=== PATIENT | male | born 1975 | race Caucasian/White ===

== ENCOUNTER 2016-10-25 08:55 | Emergency (ER) | payer OTHER ==
[~2016-10-25] VITALS: Ht 170.2 cm; Wt 105.6 kg
[~2016-10-25 08:55] MED LIST: BND25 PO; EPP3/2 IM; PERM5CRE5 TD; RRNITROTAB SL
[2016-10-25 09:00] VITALS: TEMP 36.8; Ht 170.2 cm; Wt 105.6 kg
[2016-10-25 09:03] VITALS: O2SAT 100
[2016-10-25] MEDS ORDERED: SODIUM CHLORIDE 0.9% 1000ML 1,000 ML IV STA (09:06)
[2016-10-25] MEDS ORDERED: ONDANSETRON INJ 2 MG/ML 2 ML VIAL IV STA (09:06)
[2016-10-25 09:21] LABS: BASO % 0.6 %; BASO ABS # 0.04 K/uL (0-0.2); COMPLETE YES; EOS % 2.1 %; HEMATOCRIT 39.2 % (42-52); IG% 0.1 %; LYMPH % 33.7 %; LYMPH ABS # 2.37 K/uL (1.2-3.4); MEAN CELL VOLUME 89.5 fL (80-100); MEAN CORPUSCULAR HEMOGLOBIN 32.6 pg (25-34); MEAN CORPUSCULAR HGB CONC 36.5 g/dl (32-36); MEAN PLATELET VOLUME 9.7 fL (7.4-10.4); MONO % 5.8 %; NEUT % 57.7 %; PLATELET COUNT 199 K/uL (130-400); RED BLOOD COUNT 4.38 M/uL (4.7-6.1); WHITE BLOOD COUNT 7.03 K/uL (4.8-10.8)
[2016-10-25] MEDS: MoRPHine SULFATE 4 MG/ML 1 ML CARP\\VIAL IV PRN ×3 (09:21→10:57)
--- NOTE | 2016-10-25 09:25 | EMERGENCY ROOM VISIT NOTE ---
History Report prepared by Franck: Shae Cardenas Under the Supervision of: Dr. Robert Carmona D.O. First contact with patient: 09:01 Chief Complaint: CHEST PAIN Stated Complaint: CHEST PAIN Nursing Triage Summary: pt c/o left chest pain started at 0800 this am feels sob History of Present Illness The patient is a 41 year old male who presents to the Emergency Room with complaints of chest pain. The patient started having chest pain at approximately 8 a.m. this morning. 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 He also complains of nausea as well as shortness of breath. He states the pain is over the left side of his chest and goes to his mid back. He states it radiates to his lower back. He has not had pain similar to this in the past. He states the pain is moderate to severe this time. He has taken no medication for pain. He denies any swelling in the legs or abdominal pain he denies having any vomiting. He has not had any strenuous activity recently. He doesn't a family history of heart disease with his grandfather. The patient states the pain is somewhat worsened with deep breath. Source of History: patient Onset: 8 am this morning Position: chest (left) Symptom Intensity: Moderate to severe Modifying Factors (Worsening): breathing (deep) Associated Symptoms: + SOB, + nausea, No abdominal pain, No vomiting Review of Systems See HPI for pertinent positives & negatives. A total of 10 systems reviewed and were otherwise negative. Past Medical & Surgical Medical Problems: (1) History of calculus of kidney (2) Kidney stone (3) s/p hernia repair (4) Ulcerative colitis (5) Urticaria Family History Patient reports no known family medical history. Social History Smoking Status: Current Every Day Smoker Alcohol Use: none Drug Use: none Marital Status: Housing Status: lives with family Occupation Status: employed Current/Historical Medications Scheduled Epinephrine (Epipen), 0.3 MG IM UD Omeprazole (Prilosec), 20 MG PO DAILY Scheduled PRN Diphenhydramine Hcl (Benadryl), 25 MG PO Q4H PRN for ALLERGIC REACTION Nitroglycerin (Nitrostat), 0.4 MG SL DIRECTED PRN for Chest Pain Oxycodone Immediate Rel Tab (Roxicodone Ir), 1-2 TAB PO Q4H PRN for Severe Pain Allergies Coded Allergies: Amoxicillin (Verified Allergy, Unknown, ANAPHYLAXIS, 10/25/16) Penicillin G (Verified Allergy, Unknown, ANAPHYLAXIS, 10/25/16) Pseudoephedrine (Verified Allergy, Unknown, HIVES, 10/25/16) Sulfa Drugs (Verified Allergy, Unknown, RASH, ITCH, 10/25/16) Physical Exam Vital Signs Date Time Temp Pulse Resp B/P Pulse Ox O2 Delivery O2 Flow Rate FiO2 10/25/16 13:26 47 18 96/65 97 Room Air 10/25/16 13:00 47 18 111/72 95 Room Air 10/25/16 12:48 48 10/25/16 11:32 52 18 104/60 96 Room Air 10/25/16 10:57 49 123/57 96 Room Air 10/25/16 10:06 48 17 100/61 96 Room Air 10/25/16 09:28 51 13 140/82 92 Nasal Cannula 2.0 10/25/16 09:25 65 20 138/100 10/25/16 09:07 53 10/25/16 09:03 100 Room Air 10/25/16 09:00 36.8 52 24 143/99 100 Room Air 2.0 Nasal Cannula 10/25/16 09:00 Nasal Cannula 2.0 Physical Exam GENERAL: Patient is awake and alert. He appears very anxious and uncomfortable. EYES: The conjunctivae are clear. The pupils are round and reactive. EARS, NOSE, MOUTH AND THROAT: The nose is without any evidence of any deformity. Mucous membranes are moist tongue is midline NECK: The neck is nontender and supple. RESPIRATORY: Normal respiratory effort is noted there is no evidence of wheezing rhonchi or rales CARDIOVASCULAR: Regular rate and rhythm noted there no murmurs rubs or gallops normal S1 normal S2 GASTROINTESTINAL: The abdomen is soft. Bowel sounds are present in all quadrants. Abdomen is nontender MUSCULOSKELETAL/EXTREMITIES: There is no evidence of gross deformity full range of motion is noted in the hips and shoulders SKIN: There is no obvious evidence of any rash. There are no petechiae, pallor or cyanosis noted. NEUROLOGIC: Patient is awake alert and oriented x3. Medical Decision & Procedures ER Provider Diagnostic Interpretation: X ray results and stated below per my interpretation and radiology interpretation. CT results per my review and radiologist interpretation: CT ANGIOGRAM OF THE CHEST COMBO CLINICAL HISTORY: Atypical chest pain. COMPARISON STUDY: Chest x-ray dated 10/25/2016. TECHNIQUE: Before and following the IV administration of 120 cc of Optiray 320, CT angiogram of the chest was performed from the thoracic inlet to the upper abdomen. Images are reviewed in the axial, sagittal, and coronal planes. 3-D MIPS images are created and assessed. IV contrast was administered without complication. CT DOSE: 1388.03 mGy.cm FINDINGS: Thyroid: Imaged portions of the thyroid gland are normal in size and attenuation. A calcified nodule in the right lobe measures up to 1.3 cm. Thoracic aorta: No intramural hematoma is seen on the unenhanced series. The thoracic aorta is normal in caliber and demonstrates standard 3-vessel arch anatomy. No dissection is seen. The arch vessels are widely patent. Pulmonary vasculature: The pulmonary trunk is normal in caliber. There are no central filling defects identified to suggest pulmonary embolus. Note that this examination was not protocoled for assessment of the pulmonary arteries. Heart: The heart is enlarged and without pericardial effusion. Lungs and pleural spaces: The lungs and pleural spaces are clear noting dependent atelectasis. There is a 5 mm nondependent nodular density identified in the anterior tracheal wall on image #68. The trachea and central airways are otherwise clear. Mediastinum: There is no mediastinal lymphadenopathy. Danna: Clear. Axillae: There is no axillary lymphadenopathy. Upper abdomen: There is a small hiatal hernia. Partially visualized upper abdominal viscera is otherwise within normal limits. Skeletal structures: No lytic or blastic bony lesions are seen. IMPRESSION: 1. There is no aneurysm or dissection seen involving the thoracic aorta. 2. Cardiomegaly. 3. The lungs are clear. Electronically signed by: Lobo Maxwell M.D. 10/25/2016 10:14 AM Dictated Date/Time: 10/25/2016 10:09 AM CHEST ONE VIEW PORTABLE CLINICAL HISTORY: CHEST PAIN dyspnea COMPARISON STUDY: 01/09/2015 FINDINGS: The bones soft tissues and hemidiaphragms are normal. The cardiomediastinal silhouette is normal. The lungs are clear. The pulmonary vasculature is normal. IMPRESSION: Negative chest. Electronically signed by: Jae Lua M.D. 10/25/2016 9:50 AM Dictated Date/Time: 10/25/2016 9:50 AM Laboratory Results 10/25/16 09:05 Red Blood Count 4.38, Mean Corpuscular Volume 89.5, Mean Corpuscular Hemoglobin 32.6, Mean Corpuscular Hemoglobin Concent 36.5, Mean Platelet Volume 9.7, Neutrophils (%) (Auto) 57.7, Lymphocytes (%) (Auto) 33.7, Monocytes (%) (Auto) 5.8, Eosinophils (%) (Auto) 2.1, Basophils (%) (Auto) 0.6, Neutrophils # (Auto) 4.05, Lymphocytes # (Auto) 2.37, Monocytes # (Auto) 0.41, Eosinophils # (Auto) 0.15, Basophils # (Auto) 0.04 10/25/16 09:05 Test 10/25/16 09:05 10/25/16 09:11 10/25/16 12:09 White Blood Count 7.03 K/uL (4.8-10.8) Red Blood Count 4.38 M/uL (4.7-6.1) Hemoglobin 14.3 g/dL (14.0-18.0) Hematocrit 39.2 % (42-52) Mean Corpuscular Volume 89.5 fL (80-100) Mean Corpuscular Hemoglobin 32.6 pg (25-34) Mean Corpuscular Hemoglobin Concent 36.5 g/dl (32-36) Platelet Count 199 K/uL (130-400) Mean Platelet Volume 9.7 fL (7.4-10.4) Neutrophils (%) (Auto) 57.7 % Lymphocytes (%) (Auto) 33.7 % Monocytes (%) (Auto) 5.8 % Eosinophils (%) (Auto) 2.1 % Basophils (%) (Auto) 0.6 % Neutrophils # (Auto) 4.05 K/uL (1.4-6.5) Lymphocytes # (Auto) 2.37 K/uL (1.2-3.4) Monocytes # (Auto) 0.41 K/uL (0.11-0.59) Eosinophils # (Auto) 0.15 K/uL (0-0.5) Basophils # (Auto) 0.04 K/uL (0-0.2) RDW Standard Deviation 39.7 fL (36.4-46.3) RDW Coefficient of Variation 12.2 % (11.5-14.5) Immature Granulocyte % (Auto) 0.1 % Immature Granulocyte # (Auto) 0.01 K/uL (0.00-0.02) Prothrombin Time 10.8 SECONDS (9.0-12.0) Prothromb Time International Ratio 1.0 (0.9-1.1) Activated Partial Thromboplast Time 25.2 SECONDS (21.0-31.0) Partial Thromboplastin Ratio 1.0 Anion Gap 10.0 mmol/L (3-11) Est Creatinine Clear Calc Drug Dose 123.5 ml/min Estimated GFR () 119.4 Estimated GFR (Non- 103.0 BUN/Creatinine Ratio 14.5 (10-20) Calcium Level 8.9 mg/dl (8.5-10.1) Total Bilirubin 0.6 mg/dl (0.2-1) Direct Bilirubin 0.1 mg/dl (0-0.2) Aspartate Amino Transf (AST/SGOT) 15 U/L (15-37) Alanine Aminotransferase (ALT/SGPT) 24 U/L (12-78) Alkaline Phosphatase 68 U/L (45-117) Total Creatine Kinase 171 U/L (39-308) Creatine Kinase MB 2.0 ng/ml (0.5-3.6) Creatine Kinase MB Ratio 1.2 (0-3.0) Total Protein 7.2 gm/dl (6.4-8.2) Albumin 4.2 gm/dl (3.4-5.0) Lipase 147 U/L (73-393) Bedside D-Dimer 183 ng/mlFEU (0-450) Bedside Troponin I 0.000 ng/ml (0-0.045) Laboratory results per my review. Medications Administered Medications (Trade) Dose Ordered Sig/Rikki Route Start Time Stop Time Status Last Admin Dose Admin Morphine Sulfate (MoRPHine SULFATE INJ) 4 mg Q15M PRN IV 10/25/16 09:15 10/25/16 14:07 DC 10/25/16 10:57 4 MG Ondansetron HCl 4 mg 4 mg NOW STAT IV 10/25/16 09:06 10/25/16 09:08 DC 10/25/16 09:17 4 MG Sodium Chloride (Nss 1000ml) 1,000 ml @ 125 mls/hr Q8H STAT IV 10/25/16 09:06 10/25/16 14:07 DC 10/25/16 09:21 125 MLS/HR Al Hydroxide/Mg Hydroxide (Maalox Susp) 30 ml NOW STAT PO 10/25/16 12:32 10/25/16 12:34 DC 10/25/16 12:55 30 ML Pantoprazole Sodium (Protonix Tab) 40 mg NOW STAT PO 10/25/16 12:32 10/25/16 12:34 DC 10/25/16 12:55 40 MG ECG Indication: chest pain Rate (beats per minute): 53 Rhythm: sinus bradycardia Findings: no acute ischemic change, no ectopy Change: no significant change (01/11/2015) ED Course 0901: The patient was evaluated in room A09B. A complete history and physical examination were performed. 0906: Sodium Chloride 1000 ml @ 125 mls/hr IV, Zofran Inj 4 mg IV 0915: Morphine Sulfate 4 mg IV 1232: Protonix Tab 40 mg PO, Maalox Susp 30 ml PO 1248: The patient does not feel comfortable going home. The patient will be evaluated for further management and care. 1317: I discussed the patient's [facility] 1335: Upon reevaluation, the patient is resting comfortably and is pain free. I discussed the results and treatment plan with him. He verbalized agreement of the treatment plan. He was discharged home. Medical Decision Differential diagnosis: Etiologies such as cardiac ischemia, aortic dissection, pulmonary embolism, pneumonia, pneumothorax, musculoskeletal, infections, pericarditis, myocarditis , esophageal rupture, gastrointestinal, as well as others were entertained. Nursing notes reviewed. The patient is a 41-year-old male who presented to the emergency department for an evaluation chest pain. The patient had anterior chest pain which went to his back. The patient's chest x-ray I felt had a widened mediastinum. This reason a dissection study was obtained to be sure this was not an dissection. The patient was not found have any signs of pulmonary embolus or dissection. EKG did not show any acute change from previous. Troponin did not show an elevation. At this time I do not feel this represents a cardiac cause for his chest pain. I discussed the patient's laboratory and radiographic studies with him. He was treated with Maalox as well as Protonix in the emergency department. Initially the patient wished to be evaluated by the hospitalist for possible inpatient management. I discussed the limitations of the emergency department workup for chest pain with the patient. On subsequent reevaluation he was feeling much better and requested to be discharged home. He was encouraged to rest and avoid any strenuous activity. He was encouraged to follow -up with his primary care physician for reevaluation this is possible. He was also encouraged to continue using Maalox or Mylanta for symptomatically relief return to the emergency department immediately if symptoms change worsen or the need arises. Consults Time Called: 1248 Consulting Physician: [facility]. Hicks, [facility] Returned Call: [phone] I discussed the patient's case with Dr. Hicks[facility]. Impression Primary Impression: Anterior chest wall pain Additional Impression: Back pain Scribe Attestation The scribe's documentation has been prepared under my direction and personally reviewed by me in its entirety. I confirm that the note above accurately reflects all work, treatment, procedures, and medical decision making performed by me. Departure Information Dispostion Home / Self-Care Prescriptions Omeprazole (PRILOSEC) 20 Mg Cap 20 MG PO DAILY, #30 CAP Prov: Robert Carmona, DO 10/25/16 Oxycodone Immediate Rel Tab (ROXICODONE IR) 5 Mg Tab 1-2 TAB PO Q4H Y for Severe Pain, #24 TAB Prov: Robert Carmona, DO 10/25/16 Referrals Keya Felder C.R.N.P (PCP) Forms HOME CARE DOCUMENTATION FORM, IMPORTANT VISIT INFORMATION Patient Instructions ED Chest Pain Atypical Unkn Cause, My [facility] Additional Instructions Rest and avoid any strenuous activity. Call your family to schedule a follow -up appointment. Continue all medications as prescribed. Problem Qualifiers
[2016-10-25 09:35] LABS: PROTHROMBIN TIME (PATIENT) 10.8 SECONDS (9.0-12.0)
[2016-10-25 09:36] LABS: CALCIUM 8.9 mg/dl (8.5-10.1); POTASSIUM 3.7 mmol/L (3.5-5.1)
--- NOTE | 2016-10-25 09:52 | DIAGNOSTIC IMAGING REPORT ---
CHEST ONE VIEW PORTABLE CLINICAL HISTORY: CHEST PAIN dyspnea COMPARISON STUDY: 01/09/2015 FINDINGS: The bones soft tissues and hemidiaphragms are normal. The cardiomediastinal silhouette is normal. The lungs are clear. The pulmonary vasculature is normal. IMPRESSION: Negative chest. Electronically signed by: Jae Lua M.D. 10/25/2016 9:50 AM Dictated Date/Time: 10/25/2016 9:50 AM
[2016-10-25 09:56] LABS: BUN/CREATININE RATIO 14.5 (10-20); CKMB/CK RATIO 1.2 (0-3.0); CREATININE 0.93 mg/dl (0.60-1.40)
[2016-10-25] MEDS ORDERED: OPTIRAY 320 IV PRN (10:00)
--- NOTE | 2016-10-25 10:15 | DIAGNOSTIC IMAGING REPORT ---
CT ANGIOGRAM OF THE CHEST COMBO CLINICAL HISTORY: Atypical chest pain. COMPARISON STUDY: Chest x-ray dated 10/25/2016. TECHNIQUE: Before and following the IV administration of 120 cc of Optiray 320, CT angiogram of the chest was performed from the thoracic inlet to the upper abdomen. Images are reviewed in the axial, sagittal, and coronal planes. 3-D MIPS images are created and assessed. IV contrast was administered without complication. CT DOSE: 1388.03 mGy.cm FINDINGS: Thyroid: Imaged portions of the thyroid gland are normal in size and attenuation. A calcified nodule in the right lobe measures up to 1.3 cm. Thoracic aorta: No intramural hematoma is seen on the unenhanced series. The thoracic aorta is normal in caliber and demonstrates standard 3-vessel arch anatomy. No dissection is seen. The arch vessels are widely patent. Pulmonary vasculature: The pulmonary trunk is normal in caliber. There are no central filling defects identified to suggest pulmonary embolus. Note that this examination was not protocoled for assessment of the pulmonary arteries. Heart: The heart is enlarged and without pericardial effusion. Lungs and pleural spaces: The lungs and pleural spaces are clear noting dependent atelectasis. There is a 5 mm nondependent nodular density identified in the anterior tracheal wall on image #68. The trachea and central airways are otherwise clear. Mediastinum: There is no mediastinal lymphadenopathy. Danna: Clear. Axillae: There is no axillary lymphadenopathy. Upper abdomen: There is a small hiatal hernia. Partially visualized upper abdominal viscera is otherwise within normal limits. Skeletal structures: No lytic or blastic bony lesions are seen. IMPRESSION: 1. There is no aneurysm or dissection seen involving the thoracic aorta. 2. Cardiomegaly. 3. The lungs are clear. Electronically signed by: Lobo Maxwell M.D. 10/25/2016 10:14 AM Dictated Date/Time: 10/25/2016 10:09 AM
[2016-10-25] MEDS ORDERED: ALUMINUM/MAGNESIUM SUSP 30 ML UDC PO STA (12:32)
[2016-10-25] MEDS ORDERED: PANTOprazole SOD 40 MG TAB PO STA (12:32)
[2016-10-25] MEDS ORDERED: OXYC1TAB3 PO (12:44)
[2016-10-25] MEDS ORDERED: OMEP20CA9 PO (12:44)
[2016-10-25 13:26] VITALS: BP 96/65; PULSE 47; O2SAT 97
== END 2016-10-25 13:45 | disposition home or self-care (01) ==
LOC: C.EDB 08:56 → C.EDA 13:45
DX: R07.89 Other chest pain (principal); M54.9 Dorsalgia, unspecified; Z87.442 Personal history of urinary calculi; K51.90 Ulcerative colitis, unspecified, without complications; F17.210 Nicotine dependence, cigarettes, uncomplicated; Z79.899 Other long term (current) drug therapy

== ENCOUNTER → 2017-01-19 | Outpatient (CLI) | payer OTHER ==
[~2017-01-19] VITALS: Ht 172.7 cm; Wt 102.0 kg
[~2017-01-19] MED LIST changes: -BND25 PO; +DIPH25CA5 PO; +ONDA4TAB10 SL; +OXYC-643 PO; +OXYC1TAB3 PO; -PERM5CRE5 TD
[2017-01-19 16:17] VITALS: BP 113/72; PULSE 61; Ht 172.7 cm; Wt 102.0 kg
== END | disposition home or self-care (01) ==
LOC: C.NEUR 15:37
PROVIDERS: ATTEND Internal Medicine Pulmonary Disease
DX: G47.30 Sleep apnea, unspecified (principal)

== ENCOUNTER 2017-05-14 17:36 | Emergency (ER) | payer OTHER ==
[~2017-05-14] VITALS: Ht 170.2 cm; Wt 106.3 kg
[~2017-05-14 17:36] MED LIST changes: +BND25 PO; -DIPH25CA5 PO; -ONDA4TAB10 SL; -OXYC-643 PO; -OXYC1TAB3 PO
[2017-05-14 17:50] VITALS: TEMP 36.7; Ht 170.2 cm; Wt 106.3 kg
[2017-05-14] MEDS ORDERED: OXYC-643 PO (18:25)
[2017-05-14] MEDS ORDERED: ONDANSETRON INJ 2 MG/ML 2 ML VIAL IV STA (18:45)
[2017-05-14] MEDS ORDERED: SODIUM CHLORIDE 0.9% 1000ML 1,000 ML IV STA (18:45)
[2017-05-14 19:01] LABS: URINE APPEARANCE CLEAR (CLEAR); URINE BILIRUBIN NEG (NEG); URINE COLOR YELLOW; URINE NITRITE NEG (NEG); URINE SPECIFIC GRAVITY 1.019 (1.000-1.030); UROBILINOGEN NEG (NEG); ZZUR CULT IF INDIC CLEAN CATCH NO
[2017-05-14 19:11] LABS: MANUAL MICROSCOPIC REQUIRED? NO; REVIEW REQ? NO
[2017-05-14] MEDS ORDERED: KETOROLAC TROMETHAMINE 30 MG/ML VIAL IV STA (19:55)
[2017-05-14] MEDS ORDERED: ONDA4TAB10 SL (19:56)
--- NOTE | 2017-05-14 19:59 | EMERGENCY ROOM VISIT NOTE ---
ED Visit Note First contact with patient: 18:29 CHIEF COMPLAINT: Abdominal pain, nausea, diarrhea 2 days HISTORY OF PRESENT ILLNESS: This 42-year-old male patient presents to the emergency department's , complaining of abdominal pain, vomiting, diarrhea 2 days. The patient states yesterday morning, he awoke and had one episode of emesis. He does report right lower quadrant abdominal pain as well. The patient states this morning, he awoke and vomited again. He does describe worse right lower quadrant pain. The patient has been eating on occasion, however this has worsened his upset stomach. The patient was seen today at [facility] where he was given morphine and fluids, and sent home with a prescription for Percocet. The patient states he did have lab work and a CT scan of his abdomen performed at [facility]. The patient states he went home, however continued to experience nausea and abdominal pain. The patient did take a Percocet, and states approximately 3 hours later he did develop hives on his chest. The patient states over the past week he has intermittently been experiencing hives on his chest. The patient reports the pain as intermittently sharp and 8/10. The pain did not improve with Percocet. The patient admits to chills, feeling feverish, diarrhea, fatigue. The patient denies chest pain, shortness of breath, fever, constipation, or other symptoms. REVIEW OF SYSTEMS: A 10 system review of systems was performed with positives and pertinent negatives listed in the history of present illness. All other systems were reviewed and are negative. ALLERGIES: Penicillin, amoxicillin, Sudafed, sulfa MEDICATIONS: Percocet, EpiPen, Benadryl, nitroglycerin PMH: Hives SOCIAL HISTORY: The patient lives locally with family. He denies drug, alcohol use. The patient admits to smoking "a few cigarettes" daily. PHYSICAL EXAM: VITALS: Vitals are noted on the nurse's note and reviewed by myself. Vital signs stable. GENERAL: This is a 42-year-old male, in no acute distress, nondiaphoretic, well- developed well-nourished. SKIN: The skin was without rashes, erythema, edema, or bruising. There is no tenting of the skin. Capillary reflex less than 2 seconds. HEAD: Normocephalic atraumatic. EARS: External auditory canals clear, tympanic membranes pearly anand without erythema or effusion bilaterally. EYES: Pupils equal round and reactive to light and accommodation. Conjunctivae without injection, sclerae without icterus. Extraocular movements intact. NOSE: Patent, turbinates without inflammation or discharge. No sinus tenderness. MOUTH: Mucous membranes moist. Tonsils are not enlarged. Pharynx without erythema or exudate. Uvula midline. Airway patent. Tongue does not deviate. NECK: Supple without nuchal rigidity. No lymphadenopathy. No thyromegaly. Cervical spine is nontender. No JVD. HEART: Regular rate and rhythm without murmurs gallops or rubs. LUNGS: Clear to auscultation bilaterally without wheezes, rales or rhonchi. No dullness to percussion. No retractions or accessory muscle use. ABDOMEN: Positive bowel sounds x 4. Normal tympanic percussion. The patient did have right lower quadrant tenderness only and deep palpation. Otherwise, the abdomen was soft, nontender, without masses or organomegaly. Pearce sign negative. No guarding or rebound tenderness. MUSCULOSKELETAL: No muscle atrophy, erythema, or edema noted. Full range of motion without joint tenderness in all extremities. No tenderness to palpation. Normal gait. Strength 5/5 throughout. NEURO: Patient was alert and oriented to person place and time. Normal sensation to light and sharp touch. Deep tendon reflexes 2+ throughout. No focal neurological deficits. EMERGENCY DEPARTMENT COURSE: The patient was seen and evaluated as above. I was able to obtain the patient's records from [facility] with the CT scan results. I did review the records and results. CT scan showed a tiny amount of free fluid in the pelvis, but was otherwise normal. The radiologist did indicate that the appendix was normal. I discussed these labs and radiology results with the patient and his at bedside. The patient was given 1 L of normal saline solution bolus and 4 mg Zofran IV. His symptoms did significantly improve in the emergency department. I discussed possible discharge instructions with the patient and his . I encouraged them to use Zofran as needed for nausea and OTC antidiarrheal medication. I advised him that I did review all the results of the testing from [facility], and there is no further testing that I would recommend having done at this time. I did offer the patient pain medication, and he states he does not want narcotics. I did give the patient 30 mg Toradol the IV. He did note some improvement in his symptoms. The patient and his were in agreement with the discharge plan, and he is feeling better upon discharge. The patient was discharged home in good condition. DIFFERENTIAL DIAGNOSIS: Gastroenteritis, bowel obstruction, acute appendicitis, cholecystitis, pancreatitis, diverticulitis, malignancy, and others DIAGNOSIS: Acute gastroenteritis DISCHARGE INSTRUCTIONS & TREATMENT: You have been treated in the Emergency Department your Abdominal Pain. Laboratory results and imaging studies which were performed at [facility] have ruled out any emergent causes for your abdominal pain which would warrant admission or surgery. You have been prescribed Percocet by [facility] to be used for pain control. This is a narcotic medication. You cannot drive or consume alcohol while on this medicine. This medicine should only be used for pain that cannot be controlled with [id number]-epidbgm pain medicines. You have been prescribed Zofran to be used for any nausea or vomiting. Take as prescribed. You may take OTC antidiarrheal medications as directed on the box. For pain control, you can use the following cnzy-kfo-dzihfwo medicines (if >12 yo): - Regular strength (325mg/tab) Tylenol (acetaminophen) 2 tabs every 4-6 hours as needed. Do not exceed 9 tablets in a 24 hour period. Avoid taking more than 3 grams (3000 mg) of Tylenol per day. This includes any other sources of acetaminophen you may take on a regular basis. - Regular strength (200 mg/tab) Advil (ibuprofen) 1-2 tabs every 4-6 hours as needed. Do not exceed a dose of 2400 mg per day. Drink plenty of water and stay well hydrated. I recommend a clear liquid diet for the next 1-2 days until your abdominal pain, nausea, vomiting have improved. At that time, slowly increase easy to digest foods such as bananas, rice, baked chicken, and fruits and vegetables. Try to avoid any fatty or fried foods for the next week. As with any trip to the Emergency Department, you should follow-up with your Primary Care Provider from today's visit. Return to the emergency department if your symptoms persist despite treatment plan outlined above or if the following symptoms occur: increased fevers, chills , worsening nausea/vomiting, blood in your stool or urine. Problem List Medical Problems: (1) History of calculus of kidney Status: Resolved (2) Kidney stone Status: Resolved (3) s/p hernia repair Status: Resolved (4) Ulcerative colitis Status: Resolved (5) Urticaria Status: Chronic Current/Historical Medications Scheduled Epinephrine (Epipen), 0.3 MG IM UD Ondasetron Odt (Zofran Odt), 4 MG SL Q6H Scheduled PRN Diphenhydramine Hcl (Benadryl), 25 MG PO Q4H PRN for ALLERGIC REACTION Nitroglycerin (Nitrostat), 0.4 MG SL DIRECTED PRN for Chest Pain Oxycodone/Acetaminophen 5MG/325MG (Oxycodone/Acetaminophen 5MG/325MG), 1 TAB PO Q6 PRN for Pain Allergies Coded Allergies: Amoxicillin (Verified Allergy, Unknown, ANAPHYLAXIS, 05/14/17) Penicillin G (Verified Allergy, Unknown, ANAPHYLAXIS, 05/14/17) Pseudoephedrine (Verified Allergy, Unknown, HIVES, 05/14/17) Sulfa Drugs (Verified Allergy, Unknown, RASH, ITCH, 05/14/17) Vital Signs Date Time Temp Pulse Resp B/P (MAP) Pulse Ox O2 Delivery O2 Flow Rate FiO2 05/14/17 20:12 56 20 126/74 95 Room Air 05/14/17 19:38 48 18 102/58 95 Room Air 05/14/17 19:02 48 18 105/66 96 Room Air 05/14/17 17:50 36.7 55 18 109/73 96 Room Air Laboratory Results Test 05/14/17 18:25 Urine Color YELLOW Urine Appearance CLEAR (CLEAR) Urine pH 5.0 (4.5-7.5) Urine Specific [place] 1.019 (1.000-1.030) Urine Protein NEG (NEG) Urine Glucose (UA) NEG (NEG) Urine Ketones NEG (NEG) Urine Occult Blood NEG (NEG) Urine Nitrite NEG (NEG) Urine Bilirubin NEG (NEG) Urine Urobilinogen NEG (NEG) Urine Leukocyte Esterase NEG (NEG) Medications Administered Medications (Trade) Dose Ordered Sig/Rikki Route Start Time Stop Time Status Last Admin Dose Admin Ondansetron HCl (Zofran Inj) 4 mg NOW STAT IV 05/14/17 18:45 05/14/17 18:52 DC 05/14/17 19:02 4 MG Sodium Chloride 1,000 ml @ 999 mls/hr Q1H1M STAT IV 05/14/17 18:45 05/14/17 19:45 DC 05/14/17 19:02 999 MLS/HR Ketorolac Tromethamine (Toradol Inj) 30 mg NOW STAT IV 05/14/17 19:55 05/14/17 19:56 DC 05/14/17 19:59 30 MG Ondansetron HCl (ZOFRAN ODT 4MG Home Pack) 1 homepack UD ONCE PO 05/14/17 20:00 05/14/17 20:01 DC 05/14/17 20:11 1 HOMEPACK Departure Information Impression Primary Impression: Acute gastroenteritis Dispostion Home / Self-Care Condition GOOD Prescriptions Ondasetron Odt (ZOFRAN ODT) 4 Mg Tab 4 MG SL Q6H for Nausea, #12 TAB Prov: Laina Velasquez PA-C 05/14/17 Referrals Keya Felder C.R.N.P (PCP) Patient Instructions ED Abdominal Pain Unkn Cause, ED Gastroenteritis Viral, [facility] Additional Instructions You have been treated in the Emergency Department your Abdominal Pain. Laboratory results and imaging studies which were performed at [facility] have ruled out any emergent causes for your abdominal pain which would warrant admission or surgery. You have been prescribed Percocet by [facility] to be used for pain control. This is a narcotic medication. You cannot drive or consume alcohol while on this medicine. This medicine should only be used for pain that cannot be controlled with caig-rjp-fqqvuyq pain medicines. You have been prescribed Zofran to be used for any nausea or vomiting. Take as prescribed. You may take OTC antidiarrheal medications as directed on the box. For pain control, you can use the following kaaq-iab-ghqojdz medicines (if >12 yo): - Regular strength (325mg/tab) Tylenol (acetaminophen) 2 tabs every 4-6 hours as needed. Do not exceed 9 tablets in a 24 hour period. Avoid taking more than 3 grams (3000 mg) of Tylenol per day. This includes any other sources of acetaminophen you may take on a regular basis. - Regular strength (200 mg/tab) Advil (ibuprofen) 1-2 tabs every 4-6 hours as needed. Do not exceed a dose of 2400 mg per day. Drink plenty of water and stay well hydrated. I recommend a clear liquid diet for the next 1-2 days until your abdominal pain, nausea, vomiting have improved. At that time, slowly increase easy to digest foods such as bananas, rice, baked chicken, and fruits and vegetables. Try to avoid any fatty or fried foods for the next week. As with any trip to the Emergency Department, you should follow-up with your Primary Care Provider from today's visit. Return to the emergency department if your symptoms persist despite treatment plan outlined above or if the following symptoms occur: increased fevers, chills , worsening nausea/vomiting, blood in your stool or urine.
[2017-05-14] MEDS ORDERED: ONDANSETRON HOME PACK 4MG OD TAB PO ONE (20:00)
[2017-05-14 20:12] VITALS: BP 126/74; PULSE 56; O2SAT 95
== END 2017-05-14 20:23 | disposition home or self-care (01) ==
LOC: C.EDB 17:38 → C.EDA 20:23
DX: K52.9 Noninfective gastroenteritis and colitis, unspecified (principal); F17.200 Nicotine dependence, unspecified, uncomplicated

== ENCOUNTER 2018-01-13 13:13 | Emergency (ER) | payer OTHER ==
[~2018-01-13] VITALS: Ht 167.6 cm; Wt 107.6 kg
[~2018-01-13 13:13] MED LIST changes: -BND25 PO; +DIPH25CA5 PO; +OXYC-643 PO
[2018-01-13 13:18] VITALS: TEMP 36.7; Ht 167.6 cm; Wt 107.6 kg
[2018-01-13] MEDS ORDERED: SODIUM CHLORIDE 0.9% 1000ML 1,000 ML IV STA (13:28)
[2018-01-13] MEDS ORDERED: DiphenhydrAMINE HCL 50 MG/ML VIAL IV STA (13:28)
[2018-01-13] MEDS ORDERED: GI COCKTAIL PO STA (13:28)
[2018-01-13] MEDS ORDERED: DEXAMETHASONE **PF** INJ 10 MG/ML VIAL IV ONE (13:30)
[2018-01-13] MEDS ORDERED: RANITIDINE HCL SYRUP 150 MG/10 ML UDC PO ONE (13:30)
--- NOTE | 2018-01-13 13:38 | EMERGENCY ROOM VISIT NOTE ---
History Report prepared by Franck: Yary Wall Under the Supervision of: Dr. Tanner Carranza M.D. First contact with patient: 13:24 Chief Complaint: CHEST PAIN Stated Complaint: SPIDER BITE REACTION,CHEST PAINS History of Present Illness The patient is a 42 year old male who presents to the Emergency Room with complaints of persistent centralized chest pain episodes which began earlier today. 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 Since then he has been experiencing headaches along with the chest pain that began today. He notes that he feels very lightheaded when he tries to get up. The patient denies any loss of consciousness, nausea, or vomiting. Source of History: patient Onset: today Position: chest (centralized) Quality: other (chest pain) Timing: other (persistent) Associated Symptoms: No LOC, No nausea, No vomiting Review of Systems See HPI for pertinent positives & negatives. A total of 10 systems reviewed and were otherwise negative. Past Medical & Surgical Medical Problems: (1) History of calculus of kidney (2) Kidney stone (3) s/p hernia repair (4) Ulcerative colitis (5) Urticaria Family History Patient reports no known family medical history. Social History Smoking Status: Current Every Day Smoker Alcohol Use: none Drug Use: none Marital Status: Housing Status: lives with family Occupation Status: employed Current/Historical Medications Scheduled Methylprednisolone (Medrol Dosepak), 1 PKT PO UD Allergies Coded Allergies: Amoxicillin (Verified Allergy, Unknown, ANAPHYLAXIS, 05/14/17) Penicillin G (Verified Allergy, Unknown, ANAPHYLAXIS, 05/14/17) Pseudoephedrine (Verified Allergy, Unknown, HIVES, 05/14/17) Sulfa Drugs (Verified Allergy, Unknown, RASH, ITCH, 05/14/17) Physical Exam Vital Signs Date Time Temp Pulse Resp B/P (MAP) Pulse Ox O2 Delivery O2 Flow Rate FiO2 01/13/18 15:30 68 16 112/74 98 01/13/18 14:44 55 16 120/66 95 Room Air 01/13/18 13:51 96 Room Air 01/13/18 13:45 57 18 127/61 94 Room Air 01/13/18 13:34 65 01/13/18 13:18 36.7 64 18 120/75 97 Room Air Physical Exam GENERAL: Patient is anxious appearing and in mild distress. EYES: No scleral icterus, unremarkable pupils. ENT: Mucous membranes moist, no nasal congestion. NECK: No masses appreciated, no meningismus, trachea is midline. RESPIRATORY: No dyspnea. Clear to auscultation and equal bilaterally. No wheeze , no rhonchi. CARDIOVASCULAR: Regular rate and rhythm. No murmurs, rubs, gallops appreciated. GASTROINTESTINAL: Abdomen soft, nontender, no peritonitis. Bowel sounds positive. No masses appreciated. BACK: No midline tenderness, no CVA tenderness EXTREMITIES: Normal motion all extremities, no cyanosis, no edema. NEUROLOGIC: Alert and oriented, no acute motor or sensory deficits, no focal weakness, cranial nerves grossly intact. SKIN: Mild swelling of top of left hand with small red bite between third and fourth digits of hand. No rash, no jaundice, no diaphoresis. Medical Decision & Procedures ER Provider Diagnostic Interpretation: Radiology results and stated below per my review and radiologist interpretation: SINGLE VIEW CHEST CLINICAL HISTORY: Atypical chest pain. FINDINGS: An AP, portable, upright chest radiograph is compared to chest x-ray and chest CT dated 10/25/2016. The examination is degraded by portable technique and patient rotation. The heart is top normal for projection. The mediastinal contour is within normal limits. The lungs and pleural spaces are clear. No pneumothorax is seen. The bony thorax is grossly intact. IMPRESSION: No active disease in the chest. Electronically signed by: Lobo Maxwell M.D. 01/13/2018 2:14 PM Dictated Date/Time: 01/13/2018 2:13 PM Laboratory Results 01/13/18 13:35 Red Blood Count 4.83, Mean Corpuscular Volume 90.9, Mean Corpuscular Hemoglobin 31.9, Mean Corpuscular Hemoglobin Concent 35.1, Mean Platelet Volume 9.1, Neutrophils (%) (Auto) 60.6, Lymphocytes (%) (Auto) 31.1, Monocytes (%) (Auto) 5.6, Eosinophils (%) (Auto) 1.9, Basophils (%) (Auto) 0.5, Neutrophils # (Auto) 6.11, Lymphocytes # (Auto) 3.13, Monocytes # (Auto) 0.56, Eosinophils # (Auto) 0.19, Basophils # (Auto) 0.05 01/13/18 13:35 Test 01/13/18 13:35 White Blood Count 10.07 K/uL (4.8-10.8) Red Blood Count 4.83 M/uL (4.7-6.1) Hemoglobin 15.4 g/dL (14.0-18.0) Hematocrit 43.9 % (42-52) Mean Corpuscular Volume 90.9 fL (80-100) Mean Corpuscular Hemoglobin 31.9 pg (25-34) Mean Corpuscular Hemoglobin Concent 35.1 g/dl (32-36) Platelet Count 216 K/uL (130-400) Mean Platelet Volume 9.1 fL (7.4-10.4) Neutrophils (%) (Auto) 60.6 % Lymphocytes (%) (Auto) 31.1 % Monocytes (%) (Auto) 5.6 % Eosinophils (%) (Auto) 1.9 % Basophils (%) (Auto) 0.5 % Neutrophils # (Auto) 6.11 K/uL (1.4-6.5) Lymphocytes # (Auto) 3.13 K/uL (1.2-3.4) Monocytes # (Auto) 0.56 K/uL (0.11-0.59) Eosinophils # (Auto) 0.19 K/uL (0-0.5) Basophils # (Auto) 0.05 K/uL (0-0.2) RDW Standard Deviation 40.8 fL (36.4-46.3) RDW Coefficient of Variation 12.2 % (11.5-14.5) Immature Granulocyte % (Auto) 0.3 % Immature Granulocyte # (Auto) 0.03 K/uL (0.00-0.02) Anion Gap 4.0 mmol/L (3-11) Est Creatinine Clear Calc Drug Dose 122.7 ml/min Estimated GFR () 120.2 Estimated GFR (Non- 103.7 BUN/Creatinine Ratio 16.1 (10-20) Calcium Level 9.3 mg/dl (8.5-10.1) Troponin I < 0.015 ng/ml (0-0.045) Laboratory results as reviewed by me. Medications Administered Medications (Trade) Dose Ordered Sig/Rikki Route Start Time Stop Time Status Last Admin Dose Admin Diphenhydramine HCl (Benadryl Inj) 50 mg NOW STAT IV 4/29/18 13:28 01/13/18 13:30 DC 01/13/18 13:50 50 MG Dexamethasone Sodium Phosphate (Dexamethasone Inj Pf) 10 mg NOW ONCE IV 01/13/18 13:30 01/13/18 13:31 DC 01/13/18 13:50 10 MG Sodium Chloride 1,000 ml @ 999 mls/hr Q1H1M STAT IV 01/13/18 13:28 01/13/18 14:28 DC 01/13/18 13:49 999 MLS/HR Ranitidine HCl (zANTac SYRUP) 150 mg NOW ONCE PO 01/13/18 13:30 01/13/18 13:31 DC 01/13/18 13:49 150 MG Al Hydroxide/Mg Hydroxide (Maalox Susp) 30 ml STK-MED ONCE .ROUTE 01/13/18 13:42 01/13/18 13:43 DC 01/13/18 13:49 30 ML Lidocaine HCl (Viscous Lidocaine 2% Soln) 20 ml STK-MED ONCE .ROUTE 01/13/18 13:42 01/13/18 13:43 DC 01/13/18 13:49 20 ML ECG Per My Interpretation Indication: chest pain Rate (beats per minute): 61 Rhythm: normal sinus Findings: no acute ischemic change, no ectopy, other (normal axis) ED Course 1324: The patient was evaluated in room B3. A complete history and physical exam was performed. 1453: Reevaluated the patient who had complete resolution of his symptoms. He is a little somnolent but comfortable going home. We discussed results and discharge instructions: he verbalized understanding and agreement. The patient is ready for discharge. Medical Decision Differential: Allergic Reaction, Urticaria, Anaphylaxis, Lehman-Adeel Syndrome, Toxic Epidermal Necrolysis, Erythema Multiforme, Cellulitis, amongst other etiologies entertained. 42 yr old male arrives for evaluation of allergic reaction. Notes bite by "spider" on hand yesterday and now with some mild swelling left hand and mild erythema. Notes substernal CP since yesterday similar to previous reactions with bit by insects. Admits he has history of needing epi pen for these as well. He has normal EKG with negative trop and as he has had persistent pain for a day now I do not feel this is ACS. CXR looks good. Rest of labs look good. He is not anaphylactic. He has no evidence cellulitis at this time. He has resolution of symptoms with above including GI cocktail. Patient wishes to go home. notes that steroid pack has helped previously. Wishes to go to work in morning thus advised no benadryl if planning on driving/working. Medication Reconcilliation Current Medication List: was personally reviewed by me Blood Pressure Screening Patient's blood pressure: Normal blood pressure Blood pressure disposition: Did not require urgent referral Impression Primary Impression: Allergic reaction to insect bite Additional Impression: Chest pain Scribe Attestation The scribe's documentation has been prepared under my direction and personally reviewed by me in its entirety. I confirm that the note above accurately reflects all work, treatment, procedures, and medical decision making performed by me. Departure Information Dispostion Home / Self-Care Prescriptions Methylprednisolone (MEDROL DOSEPAK) 4 Mg Daniel 1 PKT PO UD for 6 Days, #1 PKT Prov: Tanner Carranza M.D. 01/13/18 Referrals Keya Felder C.R.N.P (PCP) Forms Call Back Authorization, HOME CARE DOCUMENTATION FORM, IMPORTANT VISIT INFORMATION Patient Instructions ED Allergic Reaction General Other, [facility] Problem Qualifiers
[2018-01-13] MEDS ORDERED: ALUMINUM/MAGNESIUM SUSP 30 ML UDC ONE (13:42)
[2018-01-13] MEDS ORDERED: LIDOCAINE HCL 2% VISC SOLN 20 ML UDC ONE (13:42)
[2018-01-13 13:43] LABS: BASO % 0.5 %; BASO ABS # 0.05 K/uL (0-0.2); EOS % 1.9 %; EOS ABS # 0.19 K/uL (0-0.5); HEMATOCRIT 43.9 % (42-52); HEMOGLOBIN 15.4 g/dL (14.0-18.0); IG# 0.03 K/uL (0.00-0.02); LYMPH % 31.1 %; LYMPH ABS # 3.13 K/uL (1.2-3.4); MEAN CELL VOLUME 90.9 fL (80-100); MEAN CORPUSCULAR HEMOGLOBIN 31.9 pg (25-34); MEAN CORPUSCULAR HGB CONC 35.1 g/dl (32-36); MEAN PLATELET VOLUME 9.1 fL (7.4-10.4); MONO % 5.6 %; MONO ABS # 0.56 K/uL (0.11-0.59); NEUT % 60.6 %; NEUT ABS # 6.11 K/uL (1.4-6.5); PLATELET COUNT 216 K/uL (130-400); RED CELL DISTRIBUTION WIDTH CV 12.2 % (11.5-14.5); RED CELL DISTRIBUTION WIDTH SD 40.8 fL (36.4-46.3); WHITE BLOOD COUNT 10.07 K/uL (4.8-10.8)
[2018-01-13 14:01] LABS: BLOOD UREA NITROGEN 15 mg/dl (7-18); CALCIUM 9.3 mg/dl (8.5-10.1); CARBON DIOXIDE 31 mmol/L (21-32); CREATININE 0.92 mg/dl (0.60-1.40); GLUCOSE 84 mg/dl (70-99); POTASSIUM 3.8 mmol/L (3.5-5.1); SODIUM 143 mmol/L (136-145)
--- NOTE | 2018-01-13 14:16 | DIAGNOSTIC IMAGING REPORT ---
SINGLE VIEW CHEST CLINICAL HISTORY: Atypical chest pain. FINDINGS: An AP, portable, upright chest radiograph is compared to chest x-ray and chest CT dated 10/25/2016. The examination is degraded by portable technique and patient rotation. The heart is top normal for projection. The mediastinal contour is within normal limits. The lungs and pleural spaces are clear. No pneumothorax is seen. The bony thorax is grossly intact. IMPRESSION: No active disease in the chest. Electronically signed by: Lobo Maxwell M.D. 01/13/2018 2:14 PM Dictated Date/Time: 01/13/2018 2:13 PM
[2018-01-13] MEDS ORDERED: METH4PAK PO (14:53)
[2018-01-13 15:30] VITALS: BP 112/74; PULSE 68; O2SAT 98
== END 2018-01-13 15:58 | disposition home or self-care (01) ==
LOC: C.EDB 13:16
DX: T78.40XA Allergy, unspecified, initial encounter (principal); S60.562A Insect bite (nonvenomous) of left hand, initial encounter; W57.XXXA Bitten or stung by nonvenomous insect and other nonvenomous arthropods, initial encounter; R07.9 Chest pain, unspecified; K51.90 Ulcerative colitis, unspecified, without complications; F17.200 Nicotine dependence, unspecified, uncomplicated; Z87.442 Personal history of urinary calculi; Z88.0 Allergy status to penicillin; Z88.1 Allergy status to other antibiotic agents; Z88.2 Allergy status to sulfonamides; Z88.8 Allergy status to other drugs, medicaments and biological substances; Z98.890 Other specified postprocedural states; Z79.899 Other long term (current) drug therapy

== ENCOUNTER → 2018-01-25 | Outpatient (CLI) | payer OTHER ==
[~2018-01-25] VITALS: Ht 170.2 cm; Wt 107.2 kg
[2018-01-25 12:23] VITALS: BP 112/65; PULSE 60; Ht 170.2 cm; Wt 107.2 kg
== END | disposition home or self-care (01) ==
LOC: C.NEUR 12:09
PROVIDERS: ATTEND Internal Medicine Pulmonary Disease
DX: G47.30 Sleep apnea, unspecified (principal); G47.34 Idiopathic sleep related nonobstructive alveolar hypoventilation; E66.9 Obesity, unspecified

== ENCOUNTER 2023-06-11 08:30 | Observation (INO) ==
[2023-06-11] MEDS ORDERED: SODIUM CHLORIDE 0.9% 500 ML IV STA (08:46)
[2023-06-11] MEDS ORDERED: KETOROLAC TROMETHAMINE 15 MG/ML VIAL IV STA (08:54)
[2023-06-11] MEDS ORDERED: ONDANSETRON INJ 2 MG/ML 2 ML VIAL IV STA (08:54)
[2023-06-11] MEDS ORDERED: HYDROmorphone INJ 1 MG/ML SYRINGE IV STA (08:54)
--- NOTE | 2023-06-11 09:09 | Emergency Department Note ---
Impression & Plan Right sided abdominal pain, Pain in right testicle, Diverticular disease, Failure of outpatient treatment ED Provider Note NAME: SALLY MORFIN JR AGE: 48 SEX: M : 1975 ARRIVES VIA: Walk-In INFORMANT: [Patient][family] ED PROVIDER(S): [Lobo Evans MD] CHIEF COMPLAINT: Abdominal pain HISTORY OF PRESENT ILLNESS: The patient is a 48-year-old male who has a history of chronic right testicular discomfort. He states that for the last 24 hours. He has had pain in the right lower quadrant and right groin that radiates to the back. The patient has had colicky discomfort and the pain has become intense enough that he has had some nausea. The patient was seen in the ED yesterday and laboratory testing, CT imaging did not show any findings that would explain his discomfort. He was discharged on pain medication. The patient presents back this morning with increased pain and the inability to function at home because of the discomfort despite the pain medication. He has no new complaints. He does state the pain seems worse than yesterday. PMHx/PSHx: See Below SOCIAL HISTORY: See Below. PHYSICAL EXAM: GENERAL: Patient is in no acute distress. HEENT: No acute trauma, normocephalic atraumatic, mucous membranes moist, no nasal congestion. NECK: No stridor, no adenopathy, no meningismus, trachea is midline. LUNGS: Clear to auscultation bilaterally, no wheeze, no rhonchi, breath sounds equal. HEART: Without murmurs gallops or rubs, regular rate and rhythm. ABDOMEN: Soft, moderately tender on the entire right side of the abdomen but mostly in the right lower quadrant, no peritonitis. EXTREMITIES: No cyanosis or edema, full range of motion of all the joints without pain or difficulty, no signs for acute trauma. NEUROLOGIC: Oriented x 3, no acute motor or sensory deficits, no focal weakness. SKIN: No rash, no jaundice, no diaphoresis. Groin: Testicles are normal in size and appear nontender. No scrotal cellulitis. No obvious hernia by my exam. DIFFERENTIAL DIAGNOSIS: Renal colic, testicular torsion, appendicitis, diverticulitis, arterial dissecti on, nerve impingement, musculoskeletal pain, hernia, among others. EMERGENCY DEPARTMENT COURSE/PROCEDURES: Prior/Outside records reviewed: Previous ED note, previous urology note. MEDICAL DECISION MAKING: There is no leukocytosis. A very mild anemia was seen. There was a normal platelet count. No renal failure or significant electrolyte abnormality. Lactic acid level was not elevated making bowel ischemia less likely. No concerning liver enzyme elevation. No evidence for pancreatitis. Urinalysis did not show blood or infection. COVID, influenza and RSV test were negative. Abdominal and pelvis CT does not show any acute surgical process. Some chronic changes were seen. Diverticuli were seen. Testicular ultrasound did not show any evidence for torsion. On exam, the patient was tender along the right side of the abdomen. No peritonitis, no fever. The patient received IV saline for hydration. He was given IV Dilaudid for pain, he received IV Toradol for pain. He received IV Zofran. Patient received IV Cipro and IV Flagyl for the possibility of diverticulitis. The patient has persisting abdominal discomfort and states he cannot go home again as he cannot tolerate the pain despite the pain medications prescribed. I did have surgery see the patient here in the ED, Dr. Younger. They felt that treatment for diverticulitis might be warranted as a mild case of diverticulitis not visualized on CT could be causing his trouble. I did speak with the patient and case management, the on-call hospitalist has been consulted. For now, hospitalization appears warranted. DISPOSITION: Patient's presentation and findings warrant a hospital stay. Past Med/Surg History Medical History Claw toe (acquired) Obesity (BMI 30-39.9) Osteoarthritis Overactive bladder Sleep apnea CPAP Surgical History History of right inguinal hernia repair History of umbilical hernia repair Family History Family/Other Cancer Heart disease Hypertension Social History Smoking Status: Current every day smoker Tobacco Type: Cigarettes Cigarettes Per Day: 10; Second Hand Exposure: Yes (at work); Do You Dip or Chew Tobacco: No; Hx Alcohol Use: Yes Hx Substance Use: No Preferred Language: Latvian Communication Ability: Effective Occupational Health Nursing Director Required: No Beliefs That Will Affect Care: None marital status: Current Living Situation: Spouse and Family current occupational status: employed Feels Safe at Home: Yes Assistive Devices: CPAP, Denture - Upper and Denture - Lower Allergies Allergies Allergy/AdvReac Type Severity Reaction Status Date / Time amoxicillin Allergy Severe ANAPHYLAXIS Verified 06/11/23 12:37 penicillin G Allergy Severe ANAPHYLAXIS Verified 06/11/23 12:37 pseudoephedrine Allergy Severe Anaphylaxis Verified 06/11/23 12:53 Sulfa (Sulfonamide Allergy Severe Anaphylaxis Verified 06/11/23 12:53 Antibiotics) latex Allergy Mild Rash Verified 06/11/23 12:37 Home Meds Home Medications Medication Instructions Recorded Confirmed multivitamin 1 tab PO QAM 06/11/23 06/11/23 Previous Rx's Medication Instructions Recorded epinephrine 0.3 mg/0.3 mL 0.3 mg (0.3 mL) IM Q15M PRN 02/26/19 injection, auto-injector (EpiPen) anaphylaxis 3 doses #2 ea acetaminophen 300 mg-codeine 30 mg 1 tab PO Q8H PRN pain #9 tabs 06/10/23 tablet Results & Data (ED) Vital Signs Vital Signs - 24 hr 06/11/23 08:36 06/11/23 08:58 06/11/23 09:31 Temperature 36.2 C L Temperature Source Temporal Artery Scan Pulse Rate 53 L 44 L Pulse Rate [Apical] 46 L Respiratory Rate 16 20 Respiratory Effort / Characteristics Non-Labored Respiratory Depth Normal Normal Blood Pressure 122/87 Blood Pressure [Right Arm] 103/60 Blood Pressure Mean 98 Blood Pressure Mean [Right Arm] 74 Pulse Oximetry 93 92 Oxygen Delivery Method Room Air Room Air Sepsis Recent Fever Within 48 Hours No Sepsis New/Unexplained Change in Mental Status No Sepsis Action Taken by Nursing No Action Required 06/11/23 10:35 06/11/23 11:31 06/11/23 12:00 Temperature Temperature Source Pulse Rate 42 L Pulse Rate [Apical] 47 L 44 L Respiratory Rate 20 13 12 Respiratory Effort / Characteristics Non-Labored Non-Labored Respiratory Depth Normal Normal Blood Pressure 109/68 Blood Pressure [Right Arm] 115/73 104/72 Blood Pressure Mean 81 Blood Pressure Mean [Right Arm] 87 82 Pulse Oximetry 94 94 96 Oxygen Delivery Method Room Air Room Air Room Air Sepsis Recent Fever Within 48 Hours Sepsis New/Unexplained Change in Mental Status Sepsis Action Taken by Nursing 06/11/23 13:00 06/11/23 13:00 06/11/23 13:30 Temperature Temperature Source Pulse Rate 45 L 42 L 43 L Pulse Rate [Apical] Respiratory Rate 16 17 Respiratory Effort / Characteristics Respiratory Depth Blood Pressure 115/80 Blood Pressure [Right Arm] Blood Pressure Mean 91 Blood Pressure Mean [Right Arm] Pulse Oximetry 94 94 Oxygen Delivery Method Room Air Room Air Sepsis Recent Fever Within 48 Hours Sepsis New/Unexplained Change in Mental Status Sepsis Action Taken by Nursing 06/11/23 14:00 06/11/23 14:30 06/11/23 15:11 Temperature Temperature Source Pulse Rate 43 L 43 L 45 L Pulse Rate [Apical] Respiratory Rate 19 16 16 Respiratory Effort / Characteristics Respiratory Depth Blood Pressure 107/73 106/72 Blood Pressure [Right Arm] Blood Pressure Mean 84 83 Blood Pressure Mean [Right Arm] Pulse Oximetry 94 93 95 Oxygen Delivery Method Room Air Room Air Room Air Sepsis Recent Fever Within 48 Hours Sepsis New/Unexplained Change in Mental Status Sepsis Action Taken by Intermediate Medications Current Medication List: was personally reviewed by me Laboratory Data Attestation: I reviewed the patient's lab results. 06/11/23 09:02 06/11/23 09:02 Lab Results 06/11/23 06/11/23 06/11/23 Range/Units 09:02 09:02 09:02 WBC 6.94 (4.8-10.8) K/ul RBC 4.32 L (4.70-6.10) M/uL Hgb 13.8 L (14.0-18.0) g/dl Hct 38.1 L (42.0-52.0) % MCV 88.2 (80.0-100.0) fL MCH 31.9 (25.0-34.0) pg MCHC 36.2 H (32.0-36.0) g/dL RDW Std Deviation 38.5 (36.4-46.3) fL RDW Coeff of Rayna 11.9 (11.5-14.5) % Plt Count 216 (130-400) K/uL MPV 9.7 (9.4-12.4) fL Immature Gran % (Auto) 0.1 % Neut % (Auto) 56.6 % Lymph % (Auto) 32.9 % Bland % (Auto) 6.1 % Eos % (Auto) 3.3 % Baso % (Auto) 1.0 % Neut # (Auto) 3.93 (1.40-6.50) K/uL Lymph # (Auto) 2.28 (1.20-3.40) K/uL Bland # (Auto) 0.42 (0.11-0.59) K/uL Eos # (Auto) 0.23 (0.00-0.50) K/uL Baso # (Auto) 0.07 (0.00-0.20) K/uL Immature Gran # (Auto) 0.01 (0.01-0.20) K/uL Sodium 139 (136-145) mmol/L Potassium 4.1 (3.5-5.1) mmol/L Chloride 110 H (98-107) mmol/L Carbon Dioxide 25 (21-32) mmol/L Anion Gap 4 (3-11) BUN 20 (6-23) mg/dl Creatinine 0.77 (0.6-1.4) mg/dl Est Cr Clr Drug Dosing 131.7 ml/min Est GFR ( Amer) 126.1 ml/min Est GFR (Non-Af Amer) 108.8 ml/min BUN/Creatinine Ratio 26.0 H (10-20) Glucose 119 H (70-99(Fasting)) mg/dl Lactate 0.5 (0.4-2.0) mmol/L Calcium 9.1 (8.6-10.3) mg/dl Total Bilirubin 0.7 (0.2-1.0) mg/dl AST 17 (13-39) U/L ALT 15 (7-52) U/L Alkaline Phosphatase 57 (34-104) U/L Troponin I High Sens (0-20) pg/ml C-Reactive Protein 0.61 H (0-0.5) mg/dl Total Protein 6.8 (6.0-8.3) gm/dl Albumin 4.3 (3.4-5.0) gm/dl Globulin 2.5 (2.5-4.0) gm/dl Albumin/Globulin Ratio 1.7 (0.9-2) Lipase 44 (11-82) U/L Procalcitonin (0-0.5) ng/ml Urine Color Urine Appearance (Clear) Urine pH (4.5-7.5) Ur Specific [place] (1.000-1.030) Urine Protein (Negative) Urine Glucose (UA) (Negative) Urine Ketones (Negative) Urine Blood (Negative) Urine Nitrite (Negative) Urine Bilirubin (Negative) Urine Urobilinogen (Negative) Ur Leukocyte Esterase (Negative) SARS-CoV-2 (PCR) (Negative) Influenza Type A (PCR) (Neg) Influenza Type B (PCR) (Neg) RSV (RT-PCR) (Neg) 06/11/23 06/11/23 06/11/23 Range/Units 09:02 09:02 13:49 WBC (4.8-10.8) K/ul RBC (4.70-6.10) M/uL Hgb (14.0-18.0) g/dl Hct (42.0-52.0) % MCV (80.0-100.0) fL MCH (25.0-34.0) pg MCHC (32.0-36.0) g/dL RDW Std Deviation (36.4-46.3) fL RDW Coeff of Rayna (11.5-14.5) % Plt Count (130-400) K/uL MPV (9.4-12.4) fL Immature Gran % (Auto) % Neut % (Auto) % Lymph % (Auto) % Bland % (Auto) % Eos % (Auto) % Baso % (Auto) % Neut # (Auto) (1.40-6.50) K/uL Lymph # (Auto) (1.20-3.40) K/uL Bland # (Auto) (0.11-0.59) K/uL Eos # (Auto) (0.00-0.50) K/uL Baso # (Auto) (0.00-0.20) K/uL Immature Gran # (Auto) (0.01-0.20) K/uL Sodium (136-145) mmol/L Potassium (3.5-5.1) mmol/L Chloride (98-107) mmol/L Carbon Dioxide (21-32) mmol/L Anion Gap (3-11) BUN (6-23) mg/dl Creatinine (0.6-1.4) mg/dl Est Cr Clr Drug Dosing ml/min Est GFR ( Amer) ml/min Est GFR (Non-Af Amer) ml/min BUN/Creatinine Ratio (10-20) Glucose (70-99(Fasting)) mg/dl Lactate 0.5 (0.4-2.0) mmol/L Calcium (8.6-10.3) mg/dl Total Bilirubin (0.2-1.0) mg/dl AST (13-39) U/L ALT (7-52) U/L Alkaline Phosphatase (34-104) U/L Troponin I High Sens (0-20) pg/ml C-Reactive Protein (0-0.5) mg/dl Total Protein (6.0-8.3) gm/dl Albumin (3.4-5.0) gm/dl Globulin (2.5-4.0) gm/dl Albumin/Globulin Ratio (0.9-2) Lipase (11-82) U/L Procalcitonin < 0.05 (0-0.5) ng/ml Urine Color Yellow Urine Appearance Clear (Clear) Urine pH 6.0 (4.5-7.5) Ur Specific [place] 1.033 H (1.000-1.030) Urine Protein Negative (Negative) Urine Glucose (UA) Negative (Negative) Urine Ketones Negative (Negative) Urine Blood Negative (Negative) Urine Nitrite Negative (Negative) Urine Bilirubin Negative (Negative) Urine Urobilinogen Negative (Negative) Ur Leukocyte Esterase Negative (Negative) SARS-CoV-2 (PCR) (Negative) Influenza Type A (PCR) (Neg) Influenza Type B (PCR) (Neg) RSV (RT-PCR) (Neg) 06/11/23 06/11/23 Range/Units 13:49 14:08 WBC (4.8-10.8) K/ul RBC (4.70-6.10) M/uL Hgb (14.0-18.0) g/dl Hct (42.0-52.0) % MCV (80.0-100.0) fL MCH (25.0-34.0) pg MCHC (32.0-36.0) g/dL RDW Std Deviation (36.4-46.3) fL RDW Coeff of Aryna (11.5-14.5) % Plt Count (130-400) K/uL MPV (9.4-12.4) fL Immature Gran % (Auto) % Neut % (Auto) % Lymph % (Auto) % Bland % (Auto) % Eos % (Auto) % Baso % (Auto) % Neut # (Auto) (1.40-6.50) K/uL Lymph # (Auto) (1.20-3.40) K/uL Bland # (Auto) (0.11-0.59) K/uL Eos # (Auto) (0.00-0.50) K/uL Baso # (Auto) (0.00-0.20) K/uL Immature Gran # (Auto) (0.01-0.20) K/uL Sodium (136-145) mmol/L Potassium (3.5-5.1) mmol/L Chloride (98-107) mmol/L Carbon Dioxide (21-32) mmol/L Anion Gap (3-11) BUN (6-23) mg/dl Creatinine (0.6-1.4) mg/dl Est Cr Clr Drug Dosing ml/min Est GFR ( Amer) ml/min Est GFR (Non-Af Amer) ml/min BUN/Creatinine Ratio (10-20) Glucose (70-99(Fasting)) mg/dl Lactate (0.4-2.0) mmol/L Calcium (8.6-10.3) mg/dl Total Bilirubin (0.2-1.0) mg/dl AST (13-39) U/L ALT (7-52) U/L Alkaline Phosphatase (34-104) U/L Troponin I High Sens 4.3 (0-20) pg/ml C-Reactive Protein (0-0.5) mg/dl Total Protein (6.0-8.3) gm/dl Albumin (3.4-5.0) gm/dl Globulin (2.5-4.0) gm/dl Albumin/Globulin Ratio (0.9-2) Lipase (11-82) U/L Procalcitonin (0-0.5) ng/ml Urine Color Urine Appearance (Clear) Urine pH (4.5-7.5) Ur Specific [place] (1.000-1.030) Urine Protein (Negative) Urine Glucose (UA) (Negative) Urine Ketones (Negative) Urine Blood (Negative) Urine Nitrite (Negative) Urine Bilirubin (Negative) Urine Urobilinogen (Negative) Ur Leukocyte Esterase (Negative) SARS-CoV-2 (PCR) NEGATIVE (Negative) Influenza Type A (PCR) Negative (Neg) Influenza Type B (PCR) Negative (Neg) RSV (RT-PCR) Negative (Neg) Administered Medications Discontinued Medications Hydromorphone HCl (Hydromorphone Inj 1 Mg/Ml Syringe) 1 mg IV NOW STA Stop: 06/11/23 08:55 Last Admin: 06/11/23 09:09 Dose: 1 mg Documented By: DARSHAN Hydromorphone HCl (Hydromorphone Inj 0.5 Mg/0.5 Ml Syr) 0.5 mg IV NOW STA Stop: 06/11/23 13:11 Last Admin: 06/11/23 14:03 Dose: 0.5 mg Documented By: SUNDAY Sodium Chloride (Nss) 500 mls @ 999 mls/hr IV .Q31M STA Stop: 06/11/23 09:16 Last Infusion: 06/11/23 09:32 Dose: 0 mls/hr Documented By: Admin: 06/11/23 09:02 Dose: 999 mls/hr Documented By: DARSHAN Ciprofloxacin (Cipro / D5w) 400 mg in 200 mls @ 100 mls/hr IV NOW STA; Protocol Stop: 06/11/23 14:30 Last Admin: 06/11/23 14:18 Dose: 100 mls/hr Documented By: SUNDAY Metronidazole (Flagyl) 500 mg in 100 mls @ 100 mls/hr IV NOW STA; Protocol Stop: 06/11/23 13:30 Last Infusion: 06/11/23 15:23 Dose: 0 mls/hr Documented By: Admin: 06/11/23 14:19 Dose: 100 mls/hr Documented By: SUNDAY Lactated Ringer's (Lr) 1,000 mls @ 999 mls/hr IV .Q1H1M ONE Stop: 06/11/23 14:16 Last Infusion: 06/11/23 15:21 Dose: 0 mls/hr Documented By: Admin: 06/11/23 14:03 Dose: 999 mls/hr Documented By: SUNDAY Ioversol (Optiray 320 500ml) 94 ml IV ONCE ONE Stop: 06/11/23 11:17 Last Admin: 06/11/23 11:16 Dose: 94 ml Documented By: FERMIN Ketorolac Tromethamine (Ketorolac Tromethamine 15 Mg/Ml Vial) 15 mg IV NOW STA Stop: 06/11/23 08:55 Last Admin: 06/11/23 09:08 Dose: 15 mg Documented By: DARSHAN Ondansetron HCl (Ondansetron Inj 2 Mg/Ml 2 Ml Vial) 4 mg IV NOW STA Stop: 06/11/23 08:55 Last Admin: 06/11/23 09:09 Dose: 4 mg Documented By: DARSHAN Imaging Data Radiologist's Impression: Abdomen/Pelvis CT 06/11/23 08:54 CT abd pelvis oral and IV con CLINICAL HISTORY: rlq pain TECHNIQUE: Helical axial images of the abdomen and pelvis were obtained and displayed. Automated dose lowering techniques and/or adjustment according to patient size were utilized for this exam. This exam was performed with intravenous contrast. CT DOSE: 1366.67 mGy.cm COMPARISON: Comparison is made to CT abdomen pelvis 06/10/2023 FINDINGS: Lower chest: No acute abnormality. Liver: Unremarkable. No focal lesions are seen. Gallbladder and biliary tree: No calcified gallstones. Normal caliber wall. No intra- or extrahepatic biliary ductal dilation. Pancreas: Unremarkable, no focal lesions. Spleen: Unremarkable. Adrenals: Unremarkable. Kidneys and ureters: Left renal cyst is seen. Bladder: Unremarkable. Reproductive organs: Unremarkable. Bowel: Diverticulosis is seen without diverticulitis. The appendix is normal. Lymph nodes Retroperitoneal: Unremarkable. Pelvic: Unremarkable. Mesenteric: Unremarkable. Peritoneum: Normal. Vessels: Atherosclerotic calcifications are seen. Abdominal wall: Left fat containing inguinal hernia. Postsurgical changes of umbilical hernia repair are suggested. Bones: Mild degenerative changes are seen. IMPRESSION: 1. No acute abnormalities and in particular no evidence of appendicitis. 2. Diverticulosis without diverticulitis. ACT 112: Negative or not required by law. Electronically signed by: Deangelo Barth M.D. 06/11/2023 11:28 AM Scrotum Ultrasound 06/11/23 08:54 TESTICULAR ULTRASOUND HISTORY: r test pain, torsion COMPARISON: None. FINDINGS: Right testis: 20 x 13 x 9 mm. There are no intratesticular masses. Normal color flow. No hydrocele. The epididymis is unremarkable. Left testis: 22 x 16 x 8 mm. There is a 4 mm epididymal head cyst. There are no intratesticular masses. Normal color flow. No hydrocele. IMPRESSION: 1. No evidence for testicular torsion. 2. A 4 mm left epididymal head cyst. 3. Atrophic bilateral testes. ACT 112: Negative or not required by law. Electronically signed by: Karan Eli M.D. 06/11/2023 10:35 AM Chest X-Ray 06/11/23 13:12 XR chest 1V portable CLINICAL HISTORY: shortness of breath TECHNIQUE: Single frontal radiograph of the chest was obtained. Comparison: Comparison is made to chest radiograph 02/09/2021 FINDINGS: No lines and tubes are seen. The cardiomediastinal silhouette is normal. The lungs are clear. No evidence of pleural effusion or pneumothorax. IMPRESSION: No acute chest disease. ACT 112: Negative or not required by law. Electronically signed by: Deangelo Barth M.D. 06/11/2023 1:24 PM Discharge Plan Visit Data Chief Complaint: Abdominal Pain Stated Complaint: PAIN IN R SIDE ED Provider: Lobo Evans Discharge Problem: Right sided abdominal pain, Pain in right testicle, Diverticular disease, Failure of outpatient treatment Patient Disposition: Admitted As Inpatient Condition: Fair Forms Stand Alone Forms: [facility] Prescriptions Prescriptions: No Action epinephrine [EpiPen] 0.3 mg/0.3 mL auto-injector 0.3 mg IM Q15M PRN (Reason: anaphylaxis) Qty: 2 1RF Rx Instructions: until response acetaminophen-codeine 300-30 mg tablet 1 tab PO Q8H PRN (Reason: pain) Qty: 9 0RF multivitamin Tablet 1 tab PO QAM Referrals Referrals: Celena Berger MD [Primary Care Provider] -
[2023-06-11 09:19] LABS: Basophils # (auto) 0.07 K/uL (0.00-0.20); Eosinophils # (auto) 0.23 K/uL (0.00-0.50); Eosinophils % (auto) 3.3 %; Hematocrit (blood only) 38.1 % (42.0-52.0); Hemoglobin 13.8 g/dl (14.0-18.0); Immature Granulocytes # (auto) 0.01 K/uL (0.01-0.20); Immature Granulocytes % (auto) 0.1 %; Lymphocytes # (auto) 2.28 K/uL (1.20-3.40); Lymphocytes % (auto) 32.9 %; Mean Corpuscular Hemoglobin 31.9 pg (25.0-34.0); Mean Corpuscular Hgb Conc 36.2 g/dL (32.0-36.0); Mean Corpuscular Volume 88.2 fL (80.0-100.0); Mean Platelet Volume 9.7 fL (9.4-12.4); Monocytes # (auto) 0.42 K/uL (0.11-0.59); Monocytes % (auto) 6.1 %; Neutrophils # (auto) 3.93 K/uL (1.40-6.50); Neutrophils % (auto) 56.6 %; Platelet Count 216 K/uL (130-400); RDW Coefficient of Variation 11.9 % (11.5-14.5); RDW Standard Deviation 38.5 fL (36.4-46.3); Red Blood Count 4.32 M/uL (4.70-6.10); White Blood Count 6.94 K/ul (4.8-10.8)
[2023-06-11 09:23] LABS: Appearance Urine Clear (Clear); Bilirubin Urine Negative (Negative); Blood Urine Negative (Negative); Color Urine Yellow; Glucose Urine UA Negative (Negative); Ketones Urine Negative (Negative); Leukocyte Esterase Urine Negative (Negative); Nitrite Urine Negative (Negative); Protein Urine Negative (Negative); Specific Gravity Urine 1.033 (1.000-1.030); Urobilinogen Urine Negative (Negative)
[2023-06-11 09:38] LABS: Albumin Level 4.3 gm/dl (3.4-5.0); Bilirubin,Total 0.7 mg/dl (0.2-1.0); Calcium 9.1 mg/dl (8.6-10.3); Potassium 4.1 mmol/L (3.5-5.1)
[2023-06-11 09:45] LABS: Albumin Globulin Ratio 1.7 (0.9-2); Creatinine Clr Calc Pharmacy 131.7 ml/min; Est GFR (African American) 126.1 ml/min; Est GFR (Non-African American) 108.8 ml/min; Globulin 2.5 gm/dl (2.5-4.0); Total Protein 6.8 gm/dl (6.0-8.3)
--- NOTE | 2023-06-11 10:36 | Ultrasound Report ---
TESTICULAR ULTRASOUND HISTORY: r test pain, torsion COMPARISON: None. FINDINGS: Right testis: 20 x 13 x 9 mm. There are no intratesticular masses. Normal color flow. No hydrocele. T he epididymis is unremarkable. Left testis: 22 x 16 x 8 mm. There is a 4 mm epididymal head cyst. There are no intratesticular shar s. Normal color flow. No hydrocele. IMPRESSION: 1. No evidence for testicular torsion. 2. A 4 mm left epididymal head cyst. 3. Atrophic bilateral testes. ACT 112: Negative or not required by law. Electronically signed by: Karan Eli M.D. 06/11/2023 10:35 AM
[2023-06-11] MEDS ORDERED: OPTIRAY 320 500ml IV ONE (11:16)
--- NOTE | 2023-06-11 11:29 | CT Scan Report ---
CT abd pelvis oral and IV con CLINICAL HISTORY: rlq pain TECHNIQUE: Helical axial images of the abdomen and pelvis were obtained and displayed. Automated dose lowering techniques and/or adjustment according to patient size were utilized for this exam. This e xam was performed with intravenous contrast. CT DOSE: 1366.67 mGy.cm COMPARISON: Comparison is made to CT abdomen pelvis 06/10/2023 FINDINGS: Lower chest: No acute abnormality. Liver: Unremarkable. No focal lesions are seen. Gallbladder and biliary tree: No calcified gallstones. Normal caliber wall. No intra- or extrahepatic biliary ductal dilation. Pancreas: Unremarkable, no focal lesions. Spleen: Unremarkable. Adrenals: Unremarkable. Kidneys and ureters: Left renal cyst is seen. Bladder: Unremarkable. Reproductive organs: Unremarkable. Bowel: Diverticulosis is seen without diverticulitis. The appendix is normal. Lymph nodes Retroperitoneal: Unremarkable. Pelvic: Unremarkable. Mesenteric: Unremarkable. Peritoneum: Normal. Vessels: Atherosclerotic calcifications are seen. Abdominal wall: Left fat containing inguinal hernia. Postsurgical changes of umbilical hernia repair are suggested. Bones: Mild degenerative changes are seen. IMPRESSION: 1. No acute abnormalities and in particular no evidence of appendicitis. 2. Diverticulosis without diverticulitis. ACT 112: Negative or not required by law. Electronically signed by: Deangelo Barth M.D. 06/11/2023 11:28 AM
--- NOTE | 2023-06-11 12:34 | Surgery Consultation ---
Date of Consultation June 11, 2023 Assessment & Plan (1) Abdominal pain: CT images and results were personally viewed by myself There is a normal-appearing appendix with air present and no evidence of acute appendicitis He does have diverticulosis without any convincing evidence of diverticulitis His labs are all normal and he has no fever or tachycardia No plans for any surgical intervention Surgery will sign off at this time, please call with any questions or concerns History of Present Illness Reason for Consultation: Abdominal pain History of Present Illness Is a 48-year-old male who presented to the emergency room yesterday with right lower quadrant pain, sharp in nature without relieving or worsening factors. He had a CT scan yesterday that was normal. He had a repeat CT scan today that was also normal. He still having the abdominal pain. He denies any fevers or chills. He states he had some nausea without emesis. He states that a while ago he did have some bleeding in his stool but not anytime recently. Denies melena. Abdominal surgeries include an open umbilical hernia repair as well as a right inguinal hernia repair. Allergies Allergy/AdvReac Type Severity Reaction Status Date / Time amoxicillin Allergy Severe ANAPHYLAXIS Verified 06/11/23 12:37 penicillin G Allergy Severe ANAPHYLAXIS Verified 06/11/23 12:37 pseudoephedrine Allergy Intermediate HIVES Verified 06/11/23 12:37 Sulfa (Sulfonamide Allergy Intermediate RASH, ITCH Verified 06/11/23 12:37 Antibiotics) latex Allergy Mild Rash Verified 06/11/23 12:37 Home Medications Medication Instructions Recorded Confirmed Type epinephrine 0.3 mg/0.3 mL 0.3 mg (0.3 mL) IM Q15M PRN 02/26/19 06/11/23 Rx injection, auto-injector (EpiPen) anaphylaxis 3 doses #2 ea acetaminophen 300 mg-codeine 30 mg 1 tab PO Q8H PRN pain #9 tabs 06/10/2306/11 Rx tablet multivitamin 1 tab PO QAM 06/11/23 06/11/23 History Patient History Medical History Claw toe (acquired) Obesity (BMI 30-39.9) Osteoarthritis Overactive bladder Sleep apnea CPAP Surgical History History of right inguinal hernia repair History of umbilical hernia repair Family History Family/Other Cancer Heart disease Hypertension Social History Smoking Status: Current every day smoker Tobacco Type: Cigarettes Cigarettes Per Day: 10; Second Hand Exposure: Yes (at work); Do You Dip or Chew Tobacco: No; Hx Alcohol Use: Yes Hx Substance Use: No Preferred Language: Estonian Communication Ability: Effective Quality Assurance Intern Required: No Beliefs That Will Affect Care: None marital status: Current Living Situation: Spouse and Family current occupational status: employed Feels Safe at Home: Yes Assistive Devices: CPAP, Denture - Upper and Denture - Lower Review of Systems Constitutional: no fever and no chills Eyes: no blind spots and no worsening vision Ear, Nose, Mouth, Throat: no ear pain and no hearing loss Respiratory: no cough and no dyspnea Cardiovascular: no chest pain and no dyspnea on exertion Gastrointestinal: + abdominal pain and + nausea; no vomiting, no constipation and no diarrhea/loose stools Genitourinary: no dysuria or no hematuria Musculoskeletal: no back pain and no neck pain Integumentary: no acne, no skin ulcer and no erythema Neurologic: no headache(s) Psychiatric: no behavioral changes and no depression Hematologic / Lymphatic: no easy bleeding and no easy bruising Physical Exam Constitutional: WD/WN, vitals as above Eyes: PERRL, conjunctivae normal, anicteric sclerae ENMT: external ear and nose normal, oropharynx normal Neck: trachea midline, no thyromegaly Respiratory: normal respiratory effort, lungs clear to auscultation Cardiovascular: RRR, no murmur, no edema Gastrointestinal (Abdomen): Inspection/Auscultation: abdomen normal to inspection; abdomen not distended Percussion/Palpation: + abdomen tender (Right-sided) and abdomen soft; no guarding and no hernia Musculoskeletal: no cyanosis or clubbing, extremities motor strength 5/5 Skin: no rashes, warm and dry Neurologic: PERRL, EOMI, accommodation nl, no face palsy, no dysarthria Psychiatric: A+Ox3, euthymic affect Results & Data Vital Signs (Past 12 Hours) Vital Signs Temp Pulse Pulse Resp BP BP Pulse Ox 06/11/23 12:00 42 L 12 109/68 96 06/11/23 11:31 44 L 13 104/72 94 06/11/23 10:35 47 L 20 115/73 94 06/11/23 09:31 46 L 20 103/60 92 06/11/23 08:58 44 L 06/11/23 08:36 36.2 C L 53 L 16 122/87 93 O2 Del Method 06/11/23 12:00 Room Air 06/11/23 11:31 Room Air 06/11/23 10:35 Room Air 06/11/23 09:31 Room Air 06/11/23 08:58 06/11/23 08:36 Room Air PG Care Time/CCT Total # of Minutes Spent Total Time Spent with Patient: Total time spent is greater than 50% in coordination of care (as documented) at patient's floor/unit and/or counseling patient: Coding Level of Care Code 78878 OFFICE CONSULT LVL 55M Diagnoses Abdominal pain R10.84 Abdominal location: generalized (1) Abdominal pain Abdominal location: generalized Qualified Code(s): R10.84 - Generalized abdominal pain
--- NOTE | 2023-06-11 12:46 | History & Physical Report ---
Date of Service June 11, 2023 Assessment & Plan (1) Abdominal pain: Plan: Admitting for uncontrolled abdominal pain, nausea, inability to keep down oral intake. WBC, afebrile. LFTs wnl, Lipase 44 Prior hx of ulcerative colitis/c-scope with Dr Crum in early , not on treatment. Denies blood in stools at present. Noting his father with hx colon ca in his 70s. CTAP without acute finding, ?start of diverticulitis vs ulcerative colitis flare vs other, ?muscle strain vs nerve entrapment (?athletic pubalgia), no reported trauma however. Admit med/tele (given bradycardia) Additional 1L LR bolus Checking ESR/CRP/procal/lactic/blood cultures --> Procal <0.05, CRP elevated 0.61. Lactic 0.5. ESR pending. Cipro/Flagyl ordered by ER doctor, discussed w/ RN to await blood cultures first prior to administration -- will discuss w/ GI about continuing abx. Consult for GI placed, ?steroids -- defer to them in consultation Continue IVF @ 100cc/hr Clear liquid diet - adv as tolerated Pain control, antiemetics prn Tylenol/Dilaudid, Zofran prn Fecal occult ordered given hx UC. Will also check stool PCR, no significant diarrhea reported to check cdiff Will check RSV/COVID/Flu swab given reported chills to ensure not viral process DVT proph: SCDs for now, add chemoproph if remaining inpatient past tomorrow. Therapy consulted Monitor labs/exam on repeat (2) Testicular pain: Plan: Scrotal US w/ noted 4mm L epididymal cyst -- chronic issue noting pain from this location, ?referred Will consult Urology for further eval (3) Ulcerative colitis: Plan: hx of such, abd pain as above, concerning for inflammatory bowel disease. checking inflammatory markers as above check fecal occult for completeness although denies any bleeding GI consulted, appreciate assistance/recs. Messaged via Tigertext of consultation for discussion (4) Bradycardia: Plan: Bradycardic in ER with HRs to 40s. Not on any BB. Pwaves on monitor Trop/EKG to check for heart block/other cause for abdominal pain, CXR obtained, no acute process EKG w/ sinus harjit, no block monitor on telemetry to see if any pauses/heart block contributing (5) Mild obstructive sleep apnea: Plan: CPAP ordered -- if brings in home unit can transition (6) Current smoker: Plan: smoking cessation encouraged nicotine patch if needed (7) Depression with anxiety: Plan: not on any medications at present (8) Family history of colon cancer in father: Plan: father w/ hx colon ca in his 70s. Last c-scope at least 10 years, and given hx ulcerative colitis as above, if not getting inpatient will need outpatient follow up (9) Genitofemoral neuralgia of right side: History of Present Illness Chief Complaint: abdominal pain Primary Care Provider: Celena Berger MD 48yo male with PMHx significant for tobacco use, overactive bladder, sleep apnea, supposedly ulcerative colitis (not on treatment) ,depression/anxiety presented to the ER with worsening right sided abdominal pain. Occassionally takes ibuprofen and multivitamin at home. Patient evaluated in A12B with and family at beside, appears uncomfortable. Having ongoing RLQ/R sided, associated nausea but not vomiting at present. Abdomen is distended. Per patient/family, has had some rectal bleeding when diagnosed with ulcerative colitis, not on any medications. Denies any bleeding in his stool that they have noticed, he reports moving his bowels yesterday. Father with history of colon cancer in his 70s. Patient's does report he had c-scope in the past, around ~2011, with Dr Crum. Appears uncomfortable at present with movements. Per family, had been having chills this morning and on Sunday he had been so chilled he took a tub soak to cool off but no known fevers. SpO2 in the 80s but denies shortness of breath.Just given medication earlier, On CPAP at home, does not have with her. Will order now. Denies chest pain or shortness of breath, no difficulty laying flat at present. No LE edema/calf tenderness. Of note, patient [place], left [facility]. If he becomes distre ss/agitated should call to calm down as has done in the past. He is presently alert/oriented to person/place/time and events. notes morphine makes him angry, has allergy to sulfa/PCN/pseudoephedrine. ER Course: WBC 6.94k, Hgb 13.8, Plt 216. Na 139. K 4.1. BUN/Cr 20/0.77. UA w/ spec gravity 1.033 CTAP w/o acute finding. Scrotal US noting 4 mm left epididymal head cyst (chronic testicular issues) Given 500cc NSS bolus, Toradol 15mg IV, Dilaudid 1mg, Zofran 4mg IV Checking procal, ESR, CRP, lactic, blood cultures (discussed with nursing to obtain prior to antibiotics with Cipro/Flagyl as ordered in ER). Additional 1L LR bolus to be provided. Bradycardic on telemetry but with p-waves. No heart block observed but checking EKG/trop as well. Consultation to be undertaken by GI as well. Allergies Allergy/AdvReac Type Severity Reaction Status Date / Time amoxicillin Allergy Severe ANAPHYLAXIS Verified 06/11/23 12:37 penicillin G Allergy Severe ANAPHYLAXIS Verified 06/11/23 12:37 pseudoephedrine Allergy Severe Anaphylaxis Verified 06/11/23 12:53 Sulfa (Sulfonamide Allergy Severe Anaphylaxis Verified 06/11/23 12:53 Antibiotics) latex Allergy Mild Rash Verified 06/11/23 12:37 Home Medications Medication Instructions Recorded Confirmed Type epinephrine 0.3 mg/0.3 mL 0.3 mg (0.3 mL) IM Q15M PRN 02/26/19 06/11/23 Rx injection, auto-injector (EpiPen) anaphylaxis 3 doses #2 ea acetaminophen 300 mg-codeine 30 mg 1 tab PO Q8H PRN pain #9 tabs 06/10/23 06/11/23 Rx tablet multivitamin 1 tab PO QAM 06/11/23 06/11/23 History Past Med/Surg History Medical History Claw toe (acquired) Obesity (BMI 30-39.9) Osteoarthritis Overactive bladder Sleep apnea CPAP Surgical History History of right inguinal hernia repair History of umbilical hernia repair Family History Family/Other Cancer Heart disease Hypertension Social History Smoking Status: Current every day smoker Tobacco Type: Cigarettes Cigarettes Per Day: half a pack; Second Hand Exposure: No; Do You Dip or Chew Tobacco: No; Hx Alcohol Use: Yes Alcohol type: beer, wine and hard liquor Hx Substance Use: No Preferred Language: Croatian Communication Ability: Effective Tool Chaser Required: No Beliefs That Will Affect Care: None marital status: Current Living Situation: Spouse and Family current occupational status: employed Feels Safe at Home: Yes Assistive Devices: CPAP, Denture - Upper and Denture - Lower Review of Systems Review of Systems: All systems reviewed & are unremarkable except as noted in HPI & below Physical Exam Physical Exam: General: WD obese male laying flat in bed, NAD but mildly uncomfortable with movement, /family at bedside HEENT: head atraumatic, normocephalic, mm slightly dry, trachea midline, +thick neck Resp: diminished in the bases but no obvious w/c/r, on room air at present (SpO2 varying w/ sleep) CV: regular rhythm, bradycardic, no obvious m/r/g, no pitting edema/calf tenderness, pulses palpable GI: +BS, +distension, soft, tenderness across lower abdomen, R>L, +R flank discomfort, no rigidity/warmth : no benitez MSK/Neuro: follows commands, no focal deficit, no slurred speech no evidence for inguinal hernia. no scrotal erythema/rash, no obvious lesion (4mm epididymal head cyst reported on US) Psych: sleepy upon entry but arousable, alert and oriented to person/place/time/year Skin: no obvious skin lesions Results & Data Results & Data Vital Signs (Past 12 Hours) Vital Signs Temp Pulse Pulse Resp BP BP Pulse Ox 06/11/23 12:00 42 L 12 109/68 96 06/11/23 11:31 44 L 13 104/72 94 06/11/23 10:35 47 L 20 115/73 94 06/11/23 09:31 46 L 20 103/60 92 06/11/23 08:58 44 L 06/11/23 08:36 36.2 C L 53 L 16 122/87 93 O2 Del Method 06/11/23 12:00 Room Air 06/11/23 11:31 Room Air 06/11/23 10:35 Room Air 06/11/23 09:31 Room Air 06/11/23 08:58 06/11/23 08:36 Room Air Laboratory Results 06/11/23 06/11/23 06/11/23 Range/Units 09:02 09:02 09:02 WBC (4.8-10.8) K/ul RBC (4.70-6.10) M/uL Hgb (14.0-18.0) g/dl Hct (42.0-52.0) % MCV (80.0-100.0) fL MCH (25.0-34.0) pg MCHC (32.0-36.0) g/dL RDW Std Deviation (36.4-46.3) fL RDW Coeff of Rayna (11.5-14.5) % Plt Count (130-400) K/uL MPV (9.4-12.4) fL Immature Gran % (Auto) % Neut % (Auto) % Lymph % (Auto) % [place] % (Auto) % Eos % (Auto) % Baso % (Auto) % Neut # (Auto) (1.40-6.50) K/uL Lymph # (Auto) (1.20-3.40) K/uL [place] # (Auto) (0.11-0.59) K/uL Eos # (Auto) (0.00-0.50) K/uL Baso # (Auto) (0.00-0.20) K/uL Immature Gran # (Auto) (0.01-0.20) K/uL Sodium 139 (136-145) mmol/L Potassium 4.1 (3.5-5.1) mmol/L Chloride 110 H (98-107) mmol/L Carbon Dioxide 25 (21-32) mmol/L Anion Gap 4 (3-11) BUN 20 (6-23) mg/dl Creatinine 0.77 (0.6-1.4) mg/dl Est Cr Clr Drug Dosing 131.7 ml/min Est GFR ( Amer) 126.1 ml/min Est GFR (Non-Af Amer) 108.8 ml/min BUN/Creatinine Ratio 26.0 H (10-20) Glucose 119 H (70-99(Fasting)) mg/dl Lactate 0.5 (0.4-2.0) mmol/L Calcium 9.1 (8.6-10.3) mg/dl Total Bilirubin 0.7 (0.2-1.0) mg/dl AST 17 (13-39) U/L ALT 15 (7-52) U/L Alkaline Phosphatase 57 (34-104) U/L Total Protein 6.8 (6.0-8.3) gm/dl Albumin 4.3 (3.4-5.0) gm/dl Globulin 2.5 (2.5-4.0) gm/dl Albumin/Globulin Ratio 1.7 (0.9-2) Lipase 44 (11-82) U/L Urine Color Yellow Urine Appearance Clear (Clear) Urine pH 6.0 (4.5-7.5) Ur Specific [place] 1.033 H (1.000-1.030) Urine Protein Negative (Negative) Urine Glucose (UA) Negative (Negative) Urine Ketones Negative (Negative) Urine Blood Negative (Negative) Urine Nitrite Negative (Negative) Urine Bilirubin Negative (Negative) Urine Urobilinogen Negative (Negative) Ur Leukocyte Esterase Negative (Negative) 06/11/23 Range/Units 09:02 WBC 6.94 (4.8-10.8) K/ul RBC 4.32 L (4.70-6.10) M/uL Hgb 13.8 L (14.0-18.0) g/dl Hct 38.1 L (42.0-52.0) % MCV 88.2 (80.0-100.0) fL MCH 31.9 (25.0-34.0) pg MCHC 36.2 H (32.0-36.0) g/dL RDW Std Deviation 38.5 (36.4-46.3) fL RDW Coeff of Rayna 11.9 (11.5-14.5) % Plt Count 216 (130-400) K/uL MPV 9.7 (9.4-12.4) fL Immature Gran % (Auto) 0.1 % Neut % (Auto) 56.6 % Lymph % (Auto) 32.9 % [place] % (Auto) 6.1 % Eos % (Auto) 3.3 % Baso % (Auto) 1.0 % Neut # (Auto) 3.93 (1.40-6.50) K/uL Lymph # (Auto) 2.28 (1.20-3.40) K/uL [place] # (Auto) 0.42 (0.11-0.59) K/uL Eos # (Auto) 0.23 (0.00-0.50) K/uL Baso # (Auto) 0.07 (0.00-0.20) K/uL Immature Gran # (Auto) 0.01 (0.01-0.20) K/uL Sodium (136-145) mmol/L Potassium (3.5-5.1) mmol/L Chloride (98-107) mmol/L Carbon Dioxide (21-32) mmol/L Anion Gap (3-11) BUN (6-23) mg/dl Creatinine (0.6-1.4) mg/dl Est Cr Clr Drug Dosing ml/min Est GFR ( Amer) ml/min Est GFR (Non-Af Amer) ml/min BUN/Creatinine Ratio (10-20) Glucose (70-99(Fasting)) mg/dl Lactate (0.4-2.0) mmol/L Calcium (8.6-10.3) mg/dl Total Bilirubin (0.2-1.0) mg/dl AST (13-39) U/L ALT (7-52) U/L Alkaline Phosphatase (34-104) U/L Total Protein (6.0-8.3) gm/dl Albumin (3.4-5.0) gm/dl Globulin (2.5-4.0) gm/dl Albumin/Globulin Ratio (0.9-2) Lipase (11-82) U/L Urine Color Urine Appearance (Clear) Urine pH (4.5-7.5) Ur Specific [place] (1.000-1.030) Urine Protein (Negative) Urine Glucose (UA) (Negative) Urine Ketones (Negative) Urine Blood (Negative) Urine Nitrite (Negative) Urine Bilirubin (Negative) Urine Urobilinogen (Negative) Ur Leukocyte Esterase (Negative) Diagnostic Findings Abdomen/Pelvis CT 06/11/23 08:54 CT abd pelvis oral and IV con CLINICAL HISTORY: rlq pain TECHNIQUE: Helical axial images of the abdomen and pelvis were obtained and displayed. Automated dose lowering techniques and/or adjustment according to patient size were utilized for this exam. This exam was performed with intravenous contrast. CT DOSE: 1366.67 mGy.cm COMPARISON: Comparison is made to CT abdomen pelvis 06/10/2023 FINDINGS: Lower chest: No acute abnormality. Liver: Unremarkable. No focal lesions are seen. Gallbladder and biliary tree: No calcified gallstones. Normal caliber wall. No intra- or extrahepatic biliary ductal dilation. Pancreas: Unremarkable, no focal lesions. Spleen: Unremarkable. Adrenals: Unremarkable. Kidneys and ureters: Left renal cyst is seen. Bladder: Unremarkable. Reproductive organs: Unremarkable. Bowel: Diverticulosis is seen without diverticulitis. The appendix is normal. Lymph nodes Retroperitoneal: Unremarkable. Pelvic: Unremarkable. Mesenteric: Unremarkable. Peritoneum: Normal. Vessels: Atherosclerotic calcifications are seen. Abdominal wall: Left fat containing inguinal hernia. Postsurgical changes of umbilical hernia repair are suggested. Bones: Mild degenerative changes are seen. IMPRESSION: 1. No acute abnormalities and in particular no evidence of appendicitis. 2. Diverticulosis without diverticulitis. ACT 112: Negative or not required by law. Electronically signed by: Deangelo Barth M.D. 06/11/2023 11:28 AM Scrotum Ultrasound 06/11/23 08:54 TESTICULAR ULTRASOUND HISTORY: r test pain, torsion COMPARISON: None. FINDINGS: Right testis: 20 x 13 x 9 mm. There are no intratesticular masses. Normal color flow. No hydrocele. The epididymis is unremarkable. Left testis: 22 x 16 x 8 mm. There is a 4 mm epididymal head cyst. There are no intratesticular masses. Normal color flow. No hydrocele. IMPRESSION: 1. No evidence for testicular torsion. 2. A 4 mm left epididymal head cyst. 3. Atrophic bilateral testes. ACT 112: Negative or not required by law. Electronically signed by: Karan Eli M.D. 06/11/2023 10:35 AM Chest X-Ray 06/11/23 13:12 XR chest 1V portable CLINICAL HISTORY: shortness of breath TECHNIQUE: Single frontal radiograph of the chest was obtained. Comparison: Comparison is made to chest radiograph 02/09/2021 FINDINGS: No lines and tubes are seen. The cardiomediastinal silhouette is normal. The lungs are clear. No evidence of pleural effusion or pneumothorax. IMPRESSION: No acute chest disease. ACT 112: Negative or not required by law. Electronically signed by: Deangelo Barth M.D. 06/11/2023 1:24 PM Supervising Physician Co-Signing Physician Notes I personally saw and examined the patient. I verified all aguilar points and agree with Bernice Scott PA-C with the following exceptions and/or additions: 48 year old male who presents to the ER with right testicular and RLQ abdominal pain. Returns after discharged from the ER yesterday with normal CT. O/E HS RRR, no murmurs, Chest CTAB, Abdo right lower quadrant tenderness without guarding or rebound, right testicle pain on palpation without swelling or erythema. A/P Right testicular / right lower quadrant abdominal pain - suspect genitofemoral neuralgia - questionable ulcerative colitis history since he has never been on treatment. Discussed with Dr Crum and will repeat colonoscopy to rule this out. US normal for testes - will consult urology to rule out alternative explanations. My impression however is this is a referred testicular pain despite it being tender on palpation. On inspection and palpation his anatomy is normal. Genitofemoral neuralgia is effectively a diagnosis of exclusion however and will await colonoscopy results and urology consult. If workup is negative MRI could be considered to rule out foraminal narrowing but the problem is likely further down. Treatment consists of NSAIDs which he has already been doing. Consider gabapentin. But referral to pain management for L1/2 nerve blocks are usually diagnostic and therapeutic. PG Care Time/CCT Total # of Minutes Spent Total Time Spent with Patient: Total time spent is greater than 50% in coordination of care (as documented) at patient's floor/unit and/or counseling patient: Coding Level of Care Code 27239 INT INP/OBS CARE 3/75MIN Diagnoses Abdominal pain R10.84 Abdominal location: generalized Testicular pain N50.819 Ulcerative colitis K51.90 Bradycardia R00.1 Mild obstructive sleep apnea G47.33 Current smoker F17.200 Depression with anxiety F41.8 Family history of colon cancer in father Z80.0 Genitofemoral neuralgia of right side G58.8 (1) Abdominal pain Abdominal location: generalized Qualified Code(s): R10.84 - Generalized abdominal pain
[2023-06-11] MEDS ORDERED: HYDROmorphone INJ 0.5 MG/0.5 ML SYR IV STA (13:10)
[2023-06-11] MEDS: CIPROFLOXACIN / D5W 400 MG/200 ML BAG IV STA ×2 (13:11→14:18)
[2023-06-11] MEDS: metroNIDAZOLE 500 MG/100 ML BAG IV STA ×2 (13:12→14:19)
[2023-06-11] MEDS ORDERED: LACTATED RINGER'S 1,000 ML IV ONE (13:16)
--- NOTE | 2023-06-11 13:26 | XRay Report ---
XR chest 1V portable CLINICAL HISTORY: shortness of breath TECHNIQUE: Single frontal radiograph of the chest was obtained. Comparison: Comparison is made to chest radiograph 02/09/2021 FINDINGS: No lines and tubes are seen. The cardiomediastinal silhouette is normal. The lungs are clear. No evid ence of pleural effusion or pneumothorax. IMPRESSION: No acute chest disease. ACT 112: Negative or not required by law. Electronically signed by: Deangelo Barth M.D. 06/11/2023 1:24 PM
[2023-06-11 13:29] LABS: C Reactive Protein 0.61 mg/dl (0-0.5)
[2023-06-11 15:20] LABS: Influenza A virus by PCR Negative (Neg); Influenza B virus by PCR Negative (Neg); RSV by PCR Negative (Neg); SARS CoV2 RNA(COVID-19) Ceph NEGATIVE (Negative)
[2023-06-11] MEDS ORDERED: HYDROmorphone INJ 0.5 MG/0.5 ML SYR IV PRN (16:05)
[2023-06-11] MEDS ORDERED: ONDANSETRON INJ 2 MG/ML 2 ML VIAL IV PRN (16:05)
[2023-06-11] MEDS ORDERED: ACETAMINOPHEN 1,000 MG/100 ML VIAL IV PRN (16:05)
[2023-06-11] MEDS ORDERED: EPINEPHrine INJ 1 MG/ML AMP IM PRN (16:07)
--- NOTE | 2023-06-11 16:51 | Gastrointestinal Consultation ---
Date of Consultation June 11, 2023 Assessment & Plan (1) Right sided abdominal pain: (2) Anemia: Recommend continuing Cipro/Flagyl therapy now Clear liquid diet Bowel prep tonight NPO after midnight Colonoscopy in the AM I agree with surgery that there is no need for surgical intervention, and apprec iate their input. History of Present Illness Reason for Consultation: RLQ abdominal pain Attending Physician: Henri Vigil MD History of Present Illness 48 yo CM who has presented to the ER twice in the past 2 days for significant RLQ abd pain/groin pain. He states the pain began early Sunday morning, and is not associated with diarrhea, nausea, vomiting, or rectal bleeding. His RLQ abd pain is severe, intermittent, sharp, requiring narcotic analgesia for relief. It has affected his ability to sleep. He has had 2 CT scans in the past 2 days, without any evidence of acute abdominal abnormalities, and was seen by General Surgery, who did not feel the patient had any need for surgical intervention at present. He states that his last colonoscopy was in 2011, and he was told he had Ulcerative proctitis, but he has not had any treatment of followup for this since that time. He does have a history of a Right inguinal hernia repair and Umbilical hernia repair in the past. He has no further complaints. Allergies Allergy/AdvReac Type Severity Reaction Status Date / Time amoxicillin Allergy Severe ANAPHYLAXIS Verified 06/11/23 12:37 penicillin G Allergy Severe ANAPHYLAXIS Verified 06/11/23 12:37 pseudoephedrine Allergy Severe Anaphylaxis Verified 06/11/23 12:53 Sulfa (Sulfonamide Allergy Severe Anaphylaxis Verified 06/11/23 12:53 Antibiotics) latex Allergy Mild Rash Verified 06/11/23 12:37 Home Medications Medication Instructions Recorded Confirmed Type epinephrine 0.3 mg/0.3 mL 0.3 mg (0.3 mL) IM Q15M PRN 02/26/19 06/11/23 Rx injection, auto-injector (EpiPen) anaphylaxis 3 doses #2 ea acetaminophen 300 mg-codeine 30 mg 1 tab PO Q8H PRN pain #9 tabs 06/10/23 06/11/23 Rx tablet multivitamin 1 tab PO QAM 06/11/23 06/11/23 History Patient History Medical History Claw toe (acquired) Obesity (BMI 30-39.9) Osteoarthritis Overactive bladder Sleep apnea CPAP Surgical History History of right inguinal hernia repair History of umbilical hernia repair Family History Family/Other Cancer Heart disease Hypertension Social History Smoking Status: Current every day smoker Tobacco Type: Cigarettes Cigarettes Per Day: 10; Second Hand Exposure: Yes (at work); Do You Dip or Chew Tobacco: No; Hx Alcohol Use: Yes Hx Substance Use: No Preferred Language: Portuguese Communication Ability: Effective [employer] 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 Beliefs That Will Affect Care: None marital status: Current Living Situation: Spouse and Family current occupational status: employed Feels Safe at Home: Yes Assistive Devices: CPAP, Denture - Upper and Denture - Lower Review of Systems Review of Systems: All systems reviewed & are unremarkable except as noted in HPI & below Physical Exam Constitutional: WD/WN, vitals as above Obese Respiratory: normal respiratory effort, lungs clear to auscultation Cardiovascular: RRR, no murmur, no edema Gastrointestinal (Abdomen): Inspection/Auscultation: abdomen normal to inspection and normal bowel sounds; abdomen not distended Percussi on/Palpation: + abdomen tender and abdomen soft; no guarding, abdomen not rigid and no hepatosplenomegaly Skin: no rashes, warm and dry Psychiatric: A+Ox3, euthymic affect Results & Data Vital Signs (Past 12 Hours) Vital Signs Temp Pulse Pulse Resp BP BP Pulse Ox 06/11/23 16:00 46 L 12 110/75 95 06/11/23 15:11 45 L 16 106/72 95 06/11/23 14:30 43 L 16 93 06/11/23 14:00 43 L 19 107/73 94 06/11/23 13:30 43 L 17 94 06/11/23 13:00 42 L 16 115/80 94 06/11/23 13:00 45 L 06/11/23 12:00 42 L 12 109/68 96 06/11/23 11:31 44 L 13 104/72 94 06/11/23 10:35 47 L 20 115/73 94 06/11/23 09:31 46 L 20 103/60 92 06/11/23 08:58 44 L 06/11/23 08:36 36.2 C L 53 L 16 122/87 93 O2 Del Method 06/11/23 16:00 06/11/23 15:11 Room Air 06/11/23 14:30 Room Air 06/11/23 14:00 Room Air 06/11/23 13:30 Room Air 06/11/23 13:00 Room Air 06/11/23 13:00 06/11/23 12:00 Room Air 06/11/23 11:31 Room Air 06/11/23 10:35 Room Air 06/11/23 09:31 Room Air 06/11/23 08:58 06/11/23 08:36 Room Air PG Care Time/CCT Total # of Minutes Spent Total Time Spent with Patient: Total time spent is greater than 50% in coordination of care (as documented) at patient's floor/unit and/or counseling patient: Coding Level of Care Code 08308 IN/OBS CONSULT LVL 4,60M Diagnoses Right sided abdominal pain R10.9 Anemia D64.9 Anemia type: unspecified type (2) Anemia Anemia type: unspecified type Qualified Code(s): D64.9 - Anemia, unspecified
[2023-06-11] MEDS: LACTATED RINGER'S 1,000 ML IV SCH (17:25)
[2023-06-11] MEDS: HYDROmorphone INJ 1 MG/ML SYRINGE IV PRN ×2 (18:06→23:56)
--- NOTE | 2023-06-11 20:16 | Urology Consultation ---
Date of Consultation June 11, 2023 Assessment & Plan (1) Pain in right testicle: Patient has been admitted on the hospitalist service. We recommend proceeding as follows: The present time I do not have a clear-cut explanation for the patient's right testicular pain. 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 It is possible the patient may have developed an epididymitis from heavy lifting or straining. It is reasonable to place patient empirically on antibiotics which he has been placed on Cipro and Flagyl by the primary service. In addition scrotal support should be employed. The patient may also use ice packs as needed. Patient is currently undergoing a GI evaluation for his abdominal pain which may also be related to his scrotal pain. He is scheduled for colonoscopy on 06/12/2023. Perhaps the results of the study will shed some light on to the cause of his discomfort. As noted the patient has a testicular ultrasound without any masses or evidence of testicular torsion. Therefore there is no urgent or emergent urologic surgical procedure required. History of Present Illness Reason for Consultation: Testicular pain Attending Physician: Henri Vigil MD History of Present Illness This is a 48-year-old male who presented to the hospital at [facility] today secondary to abdominal pain for approximately 24 to 48 hours. He notes that the pain is primary located in the right lower quadrant and is a sharp stabbing pain in nature. He denies any modifying factors. He denies any fevers, but has had occasional chills. He does report some nausea without vomiting. Further questioning did reveal the patient notes that he has had bleeding in his stools in the past but this has resolved. He does not report any recent melanotic stools. Of note, the patient has had a colonoscopy in the pasthe believes it was approximately 2011 and the patient was diagnosed with ulcerative colitis at that time. He does not take any treatment for his ulcerative colitis. He has had prior abdominal surgeries in the form of an umbilical herniorrhaphy as well as a right inguinal herniorrhaphy. 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 From a urologic perspective the patient notes that he does not have any difficulty voiding. He feels as though his urine stream is strong without any urinary hesitancy. He notes that he can empty his bladder completely after each void. He denies any dysuria or hematuria. He denies any penile discharge. It is also noteworthy mention that the patient was seen in the emergency department on 06/10/2023. At that time the patient did undergo CT scan of the abdomen pelvis that did not show any acute findings and he was therefore discharged home. Since arrival to the hospital the patient has had labs and imaging which I independent reviewed. Chest x-ray showed no evidence of pneumonia. The patient did have a CT scan of the abdomen pelvis that showed no evidence of appe ndicitis. There are no other acute abnormalities noted in the abdomen other than some diverticulosis without diverticulitis. The patient did have a scrotum ultrasound that showed no evidence of testicular torsion. He was noted to have a left epididymal cyst. Labs include a CBC her white blood cell count and platelet count were normal. His hemoglobin and hematocrit were 13.8 and 38.1. Chemistry profile showed sodium and potassium along with BUN and creatinine were normal. His lactic acid level was nonelevated. There is no elevation of patient's LFTs or lipase. Urinalysis was not indicative of infection. The patient was tested for COVID, influenza a and B, as well as RSV all of which were negative. At the time of my interview he was resting comfortably in bed and he was in no distress. Allergies Allergy/AdvReac Type Severity Reaction Status Date / Time amoxicillin Allergy Severe ANAPHYLAXIS Verified 06/11/23 12:37 penicillin G Allergy Severe ANAPHYLAXIS Verified 06/11/23 12:37 pseudoephedrine Allergy Severe Anaphylaxis Verified 06/11/23 12:53 Sulfa (Sulfonamide Allergy Severe Anaphylaxis Verified 06/11/23 12:53 Antibiotics) latex Allergy Mild Rash Verified 06/11/23 12:37 Home Medications Medication Instructions Recorded Confirmed Type epinephrine 0.3 mg/0.3 mL 0.3 mg (0.3 mL) IM Q15M PRN 02/26/19 06/11/23 Rx injection, auto-injector (EpiPen) anaphylaxis 3 doses #2 ea acetaminophen 300 mg-codeine 30 mg 1 tab PO Q8H PRN pain #9 tabs 06/10/23 06/11/23 Rx tablet multivitamin 1 tab PO QAM 06/11/23 06/11/23 History Patient History Medical History Claw toe (acquired) Obesity (BMI 30-39.9) Osteoarthritis Overactive bladder Sleep apnea CPAP Surgical History History of right inguinal hernia repair History of umbilical hernia repair Family History Family/Other Cancer Heart disease Hypertension Social History Smoking Status: Current every day smoker Tobacco Type: Cigarettes Cigarettes Per Day: half a pack; Second Hand Exposure: No; Do You Dip or Chew Tobacco: No; Hx Alcohol Use: Yes Alcohol type: beer, wine and hard liquor Hx Substance Use: No Preferred Language: Vietnamese Communication Ability: Effective Activities Therapist Required: No Beliefs That Will Affect Care: None marital status: Current Living Situation: Spouse and Family current occupational status: employed Feels Safe at Home: Yes Assistive Devices: CPAP, Denture - Upper and Denture - Lower Review of Systems Constitutional: + chills; no fever Ear, Nose, Mouth, Throat: no hearing loss Respiratory: no cough and no dyspnea Cardiovascular: no chest pain Gastrointestinal: as per Subjective / HPI Genitourinary: + as per Subjective / HPI Musculoskeletal: no back pain Integumentary: no rash Neurologic: no localized weakness Physical Exam Constitutional: WD/WN, vitals as above Eyes: no conjunctival abnormality ENMT: Ears: no hearing impairment and no external ear abnormality Mouth: no oropharynx abnormality Neck: trachea midline Respiratory: normal respiratory effort; no respiratory distress and no labored breathing Cardiovascular: Rate/Rhythm: regular rate and regular rhythm Gastrointestinal (Abdomen): Abdomen is rotund but overall soft. There is no rebound tenderness or guarding but the patient did have pain with palpation which appeared to be greatest in the right lower quadrant of the abdomen. Musculoskeletal: No calf tenderness Skin: no rashes Neurologic: moves all extremities Psychiatric: A+Ox3, euthymic affect Genitourinary: The patient's penis/scrotum were examined. There are no areas of erythema. There are no open areas, cuts, or excoriations. There is no drainage from any area. There is no penile discharge. Patient's penis appear to be a normal sized circumcised penis. There is no pain with palpation of the penile shaft. Patient did have some pain with palpation of the right testicle. I did not appreciate any masses or fluid collections with palpation of his scrotum. There is no crepitus noted. Results & Data Vital Signs (Past 12 Hours) Vital Signs Temp Pulse Pulse Pulse Resp BP BP 06/11/23 19:20 36.6 C 48 L 18 109/70 06/11/23 17:27 37 C 50 L 20 114/70 06/11/23 17:00 44 L 16 118/69 06/11/23 16:00 46 L 12 110/75 06/11/23 15:11 45 L 16 106/72 06/11/23 14:30 43 L 16 06/11/23 14:00 43 L 19 107/73 06/11/23 13:30 43 L 17 06/11/23 13:00 42 L 16 115/80 06/11/23 13:00 45 L 06/11/23 12:00 42 L 12 109/68 06/11/23 11:31 44 L 13 104/72 06/11/23 10:35 47 L 20 115/73 06/11/23 09:31 46 L 20 103/60 06/11/23 08:58 44 L 06/11/23 08:36 36.2 C L 53 L 16 122/87 Pulse Ox O2 Del Method 06/11/23 19:20 94 Room Air 06/11/23 17:27 96 Room Air 06/11/23 17:00 95 Room Air 06/11/23 16:00 95 06/11/23 15:11 95 Room Air 06/11/23 14:30 93 Room Air 06/11/23 14:00 94 Room Air 06/11/23 13:30 94 Room Air 06/11/23 13:00 94 Room Air 06/11/23 13:00 06/11/23 12:00 96 Room Air 06/11/23 11:31 94 Room Air 06/11/23 10:35 94 Room Air 06/11/23 09:31 92 Room Air 06/11/23 08:58 06/11/23 08:36 93 Room Air PG Care Time/CCT Total # of Minutes Spent Total Time Spent with Patient: Total time spent is greater than 50% in coordination of care (as documented) at patient's floor/unit and/or counseling patient: Coding Level of Care Code 96693 IN/OBS CONSULT LVL 5,80M Diagnoses Pain in right testicle N50.811
[2023-06-11] MEDS: metroNIDAZOLE 500 MG/100 ML BAG IV SCH (21:48)
[2023-06-11] MEDS: LAVAGE SOLUTION 4000ML PO SCH ×3 (21:48→23:55)
[2023-06-12] MEDS: LACTATED RINGER'S 1,000 ML IV SCH ×2 (02:15→14:29)
[2023-06-12] MEDS: CIPROFLOXACIN / D5W 400 MG/200 ML BAG IV SCH ×2 (02:20→14:29)
[2023-06-12] MEDS: metroNIDAZOLE 500 MG/100 ML BAG IV SCH ×3 (05:50→20:45)
[2023-06-12 06:17] LABS: Basophils # (auto) 0.05 K/uL (0.00-0.20); Basophils % (auto) 0.6 %; Eosinophils # (auto) 0.19 K/uL (0.00-0.50); Eosinophils % (auto) 2.4 %; Hematocrit (blood only) 35.7 % (42.0-52.0); Hemoglobin 12.7 g/dl (14.0-18.0); Immature Granulocytes # (auto) 0.01 K/uL (0.01-0.20); Immature Granulocytes % (auto) 0.1 %; Lymphocytes # (auto) 2.29 K/uL (1.20-3.40); Lymphocytes % (auto) 28.9 %; Mean Corpuscular Hemoglobin 31.8 pg (25.0-34.0); Mean Corpuscular Hgb Conc 35.6 g/dL (32.0-36.0); Mean Corpuscular Volume 89.3 fL (80.0-100.0); Mean Platelet Volume 9.4 fL (9.4-12.4); Monocytes # (auto) 0.49 K/uL (0.11-0.59); Monocytes % (auto) 6.2 %; Neutrophils # (auto) 4.89 K/uL (1.40-6.50); Neutrophils % (auto) 61.8 %; Platelet Count 179 K/uL (130-400); RDW Coefficient of Variation 11.9 % (11.5-14.5); RDW Standard Deviation 38.3 fL (36.4-46.3); White Blood Count 7.92 K/ul (4.8-10.8)
[2023-06-12 06:48] LABS: Albumin Globulin Ratio 1.8 (0.9-2); Albumin Level 3.8 gm/dl (3.4-5.0); BUN Creatinine Ratio 19.5 (10-20); Bilirubin,Total 0.6 mg/dl (0.2-1.0); Calcium 8.7 mg/dl (8.6-10.3); Creatinine Clr Calc Pharmacy 131.4 ml/min; Est GFR (African American) 126.1 ml/min; Est GFR (Non-African American) 108.8 ml/min; Globulin 2.1 gm/dl (2.5-4.0); Magnesium 1.8 mg/dl (1.7-2.4); Total Protein 5.9 gm/dl (6.0-8.3)
--- NOTE | 2023-06-12 08:04 | Hospitalist Progress Note ---
Date of Service June 12, 2023 Assessment & Plan (1) Abdominal pain: Plan: Admitting for uncontrolled abdominal pain, nausea, inability to keep down oral intake. WBC, afebrile. LFTs wnl, Lipase 44 Prior hx of ulcerative colitis/c-scope with Dr Crum in early , not on treatment. Denies blood in stools at present. Noting his father with hx colon ca in his 70s. Viral testing negative CTAP without acute finding, ?start of diverticulitis vs ulcerative colitis flare vs other, ?muscle strain vs nerve entrapment (?athletic pubalgia vs genitofemoral neuralgia), no reported trauma/heavy lifting reported 1L LR bolus on admit for low BP/elevated spec gravity/poor PO intake since due to pain ESR wnl, CRP minimally elevated Blood cultures obtained Procal <0.05 Lactic wnl Cipro/Flagyl continued for now given discussion w/ GI, Dr Crum Bowel prep overnight, c-scope today for hx "ulcerative colitis vs ulcerative proctitis"? not on treatment, last c-scope >10 years ago. Family hx dad w/ colon ca in 70s Continue IVF, NPO for now Pain control, antiemetics prn Stool studies ordered, fecal occult (denied blood/diarrhea) Planning for c-scope for further eval to ensure not related to underlying inflammatory bowel disease SCDs, add chemoproph if remaining inpatient/no issues w/ c-scope Pain management consulted for concerns genitofemoral neuralgia on the right s/p genitofemoral nerve block this morning pain control pt/ot ordered on admission -- monitor Monitor c-scope results, possible dc tomorrow pending repeat evals (2) Genitofemoral neuralgia of right side: Plan: suspected possible cause for testicular pain/referred pain. urology consulted for testicular pain (noting nothing from their end) s/p nerve block as above w/ pain management this morning PT/OT evals to be undertaken (3) Testicular pain: Plan: Scrotal US w/ noted 4mm L epididymal cyst -- chronic issue noting pain from this location, ?referred urology/pain management consulted as above (4) Ulcerative colitis: Plan: hx of such, abd pain as above, concerning for inflammatory bowel disease. checking inflammatory markers as above, not significantly elevated check fecal occult for completeness although denies any bleeding GI consulted, appreciate assistance/recs. bowel prep last night/NPO this morning for c-scope with Dr Crum for further eval (5) Bradycardia: Plan: Bradycardic in ER with HRs to 40s. Not on any BB. Pwaves on monitor Trop/EKG to check for heart block/other cause for abdominal pain, CXR obtained, no acute process EKG w/ sinus harjit, no block monitor on telemetry to see if any pauses/heart block contributing -- nothing to note at present (6) Mild obstructive sleep apnea: Plan: CPAP ordered -- brought in home unit, has been using (7) Current smoker: Plan: smoking cessation encouraged nicotine patch if needed (8) Depression with anxiety: Plan: not on any medications at present (9) Family history of colon cancer in father: Plan: father w/ hx colon ca in his 70s. Last c-scope at least 10 years, and given hx ulcerative colitis (vs ulcerative proctitis?) Plan Appreciate pain management/urology/GI consultation recs/assistance continued inpatient stay, NPO for c-scope PT/OT evals updated at bedside this morning Admission and Anticipated Discharge Date Admission Date: June 11, 2023 Subjective Eval this morning, doing alright. Reporting he is hungry/wanting to have a hotdog. Planning for c-scope this afternoon and then will feed. He had injection this morning with pain management, reports he doesn't know if he's feeling significantly better or not, possibly slightly better. No fever/chills, nausea at present. RLQ abdominal pain on exam. Discussed therapy evaluations as well to see if any improvement w therapy if MSK in origin/referred pain. Urology saw last, did not feel was related to urological issue and no urgent/emergent need for urologic/surgical procedure discussed. Questions/concerns addressed at this time. Physical Exam Physical Exam: General: WD obese male laying flat in bed, NAD but mildly uncomfortable with movement and reports pain to RLQ, /family at bedside HEENT: head atraumatic, normocephalic, mm slightly dry, trachea midline, +thick neck Resp: diminished in the bases but no obvious w/c/r, on room air at present CV: regular rhythm, bradycardic to 40-50s, no obvious m/r/g, no pitting edema/calf tenderness, pulses palpable GI: +BS, +distension but soft, tenderness to palpation RLQ, no warmth/erythema/skin finding, no CVA tenderness, no rigidity : no benitez, no erythema/lesion/drainage to testis MSK/Neuro: follows commands, no focal deficit, no slurred speech no evidence for inguinal hernia. no scrotal erythema/rash, no obvious lesion (4mm epididymal head cyst reported on US) Psych: AOx3, reporting wanting something to eat Skin: no obvious skin lesions Results & Data Results & Data Vital Signs (Past 12 Hours) Vital Signs Temp Pulse Pulse Resp BP Pulse Ox O2 Del Method 06/12/23 07:26 48 L 06/12/23 03:13 36.6 C 44 L 18 93/54 L 93 Room Air 06/11/23 23:45 57 L 06/11/23 22:53 36.5 C 46 L 18 94/63 L 93 Room Air Laboratory Results 06/12/23 06/12/23 06/12/23 Range/Units 08:02 05:59 05:59 WBC 7.92 (4.8-10.8) K/ul RBC 4.00 L (4.70-6.10) M/uL Hgb 12.7 L (14.0-18.0) g/dl Hct 35.7 L (42.0-52.0) % MCV 89.3 (80.0-100.0) fL MCH 31.8 (25.0-34.0) pg MCHC 35.6 (32.0-36.0) g/dL RDW Std Deviation 38.3 (36.4-46.3) fL RDW Coeff of Rayna 11.9 (11.5-14.5) % Plt Count 179 (130-400) K/uL MPV 9.4 (9.4-12.4) fL Immature Gran % (Auto) 0.1 % Neut % (Auto) 61.8 % Lymph % (Auto) 28.9 % [place] % (Auto) 6.2 % Eos % (Auto) 2.4 % Baso % (Auto) 0.6 % Neut # (Auto) 4.89 (1.40-6.50) K/uL Lymph # (Auto) 2.29 (1.20-3.40) K/uL [place] # (Auto) 0.49 (0.11-0.59) K/uL Eos # (Auto) 0.19 (0.00-0.50) K/uL Baso # (Auto) 0.05 (0.00-0.20) K/uL Immature Gran # (Auto) 0.01 (0.01-0.20) K/uL ESR (0-15) mm/hr Sodium 138 (136-145) mmol/L Potassium 4.0 (3.5-5.1) mmol/L Chloride 108 H (98-107) mmol/L Carbon Dioxide 25 (21-32) mmol/L Anion Gap 5 (3-11) BUN 15 (6-23) mg/dl Creatinine 0.77 (0.6-1.4) mg/dl Est Cr Clr Drug Dosing 131.4 ml/min Est GFR ( Amer) 126.1 ml/min Est GFR (Non-Af Amer) 108.8 ml/min BUN/Creatinine Ratio 19.5 (10-20) Glucose 96 (70-99(Fasting)) mg/dl POC Glucose 97 (70-99) mg/dl Lactate (0.4-2.0) mmol/L Calcium 8.7 (8.6-10.3) mg/dl Magnesium 1.8 (1.7-2.4) mg/dl Total Bilirubin 0.6 (0.2-1.0) mg/dl AST 16 (13-39) U/L ALT 12 (7-52) U/L Alkaline Phosphatase 50 (34-104) U/L Troponin I High Sens (0-20) pg/ml C-Reactive Protein (0-0.5) mg/dl Total Protein 5.9 L (6.0-8.3) gm/dl Albumin 3.8 (3.4-5.0) gm/dl Globulin 2.1 L (2.5-4.0) gm/dl Albumin/Globulin Ratio 1.8 (0.9-2) Procalcitonin (0-0.5) ng/ml Stl C. cayetanensis PCR Stool Rotavirus A PCR Stl Adenov F 40/41 PCR Stool Astrovirus (PCR) Stool Campylobacter PCR Stool Cryptosporidium PCR Stl E.coli Shiga Tox PCR Stl Enterotoxigenic E PCR Stool EAEC (PCR) Stl E. histolytica PCR Stool Giardia Lamblia PCR Stool Salmonella PCR Stool Sapovirus (PCR) Stl P. shigelloides PCR Stl Shigella/EIEC PCR St Y.enterocolitica PCR Stool Vibrio (PCR) Stl Vibrio cholerae PCR Stl Norovirus GI/GII PCR SARS-CoV-2 (PCR) (Negative) Influenza Type A (PCR) (Neg) Influenza Type B (PCR) (Neg) RSV (RT-PCR) (Neg) 06/12/23 06/11/23 06/11/23 Range/Units 05:58 14:08 13:49 WBC (4.8-10.8) K/ul RBC (4.70-6.10) M/uL Hgb (14.0-18.0) g/dl Hct (42.0-52.0) % MCV (80.0-100.0) fL MCH (25.0-34.0) pg MCHC (32.0-36.0) g/dL RDW Std Deviation (36.4-46.3) fL RDW Coeff of Rayna (11.5-14.5) % Plt Count (130-400) K/uL MPV (9.4-12.4) fL Immature Gran % (Auto) % Neut % (Auto) % Lymph % (Auto) % [place] % (Auto) % Eos % (Auto) % Baso % (Auto) % Neut # (Auto) (1.40-6.50) K/uL Lymph # (Auto) (1.20-3.40) K/uL [place] # (Auto) (0.11-0.59) K/uL Eos # (Auto) (0.00-0.50) K/uL Baso # (Auto) (0.00-0.20) K/uL Immature Gran # (Auto) (0.01-0.20) K/uL ESR (0-15) mm/hr Sodium (136-145) mmol/L Potassium (3.5-5.1) mmol/L Chloride (98-107) mmol/L Carbon Dioxide (21-32) mmol/L Anion Gap (3-11) BUN (6-23) mg/dl Creatinine (0.6-1.4) mg/dl Est Cr Clr Drug Dosing ml/min Est GFR ( Amer) ml/min Est GFR (Non-Af Amer) ml/min BUN/Creatinine Ratio (10-20) Glucose (70-99(Fasting)) mg/dl POC Glucose (70-99) mg/dl Lactate (0.4-2.0) mmol/L Calcium (8.6-10.3) mg/dl Magnesium (1.7-2.4) mg/dl Total Bilirubin (0.2-1.0) mg/dl AST (13-39) U/L ALT (7-52) U/L Alkaline Phosphatase (34-104) U/L Troponin I High Sens 4.3 (0-20) pg/ml C-Reactive Protein (0-0.5) mg/dl Total Protein (6.0-8.3) gm/dl Albumin (3.4-5.0) gm/dl Globulin (2.5-4.0) gm/dl Albumin/Globulin Ratio (0.9-2) Procalcitonin (0-0.5) ng/ml Stl C. cayetanensis PCR Pending Stool Rotavirus A PCR Pending Stl Adenov F 40/41 PCR Pending Stool Astrovirus (PCR) Pending Stool Campylobacter PCR Pending Stool Cryptosporidium PCR Pending Stl E.coli Shiga Tox PCR Pending Stl Enterotoxigenic E PCR Pending Stool EAEC (PCR) Pending Stl E. histolytica PCR Pending Stool Giardia Lamblia PCR Pending Stool Salmonella PCR Pending Stool Sapovirus (PCR) Pending Stl P. shigelloides PCR Pending Stl Shigella/EIEC PCR Pending St Y.enterocolitica PCR Pending Stool Vibrio (PCR) Pending Stl Vibrio cholerae PCR Pending Stl Norovirus GI/GII PCR Pending SARS-CoV-2 (PCR) NEGATIVE (Negative) Influenza Type A (PCR) Negative (Neg) Influenza Type B (PCR) Negative (Neg) RSV (RT-PCR) Negative (Neg) 06/11/23 06/11/23 06/11/23 Range/Units 13:49 09:02 09:02 WBC (4.8-10.8) K/ul RBC (4.70-6.10) M/uL Hgb (14.0-18.0) g/dl Hct (42.0-52.0) % MCV (80.0-100.0) fL MCH (25.0-34.0) pg MCHC (32.0-36.0) g/dL RDW Std Deviation (36.4-46.3) fL RDW Coeff of Rayna (11.5-14.5) % Plt Count (130-400) K/uL MPV (9.4-12.4) fL Immature Gran % (Auto) % Neut % (Auto) % Lymph % (Auto) % [place] % (Auto) % Eos % (Auto) % Baso % (Auto) % Neut # (Auto) (1.40-6.50) K/uL Lymph # (Auto) (1.20-3.40) K/uL [place] # (Auto) (0.11-0.59) K/uL Eos # (Auto) (0.00-0.50) K/uL Baso # (Auto) (0.00-0.20) K/uL Immature Gran # (Auto) (0.01-0.20) K/uL ESR 7 (0-15) mm/hr Sodium (136-145) mmol/L Potassium (3.5-5.1) mmol/L Chloride (98-107) mmol/L Carbon Dioxide (21-32) mmol/L Anion Gap (3-11) BUN (6-23) mg/dl Creatinine (0.6-1.4) mg/dl Est Cr Clr Drug Dosing ml/min Est GFR ( Amer) ml/min Est GFR (Non-Af Amer) ml/min BUN/Creatinine Ratio (10-20) Glucose (70-99(Fasting)) mg/dl POC Glucose (70-99) mg/dl Lactate 0.5 (0.4-2.0) mmol/L Calcium (8.6-10.3) mg/dl Magnesium (1.7-2.4) mg/dl Total Bilirubin (0.2-1.0) mg/dl AST (13-39) U/L ALT (7-52) U/L Alkaline Phosphatase (34-104) U/L Troponin I High Sens (0-20) pg/ml C-Reactive Protein (0-0.5) mg/dl Total Protein (6.0-8.3) gm/dl Albumin (3.4-5.0) gm/dl Globulin (2.5-4.0) gm/dl Albumin/Globulin Ratio (0.9-2) Procalcitonin < 0.05 (0-0.5) ng/ml Stl C. cayetanensis PCR Stool Rotavirus A PCR Stl Adenov F PCR Stool Astrovirus (PCR) Stool Campylobacter PCR Stool Cryptosporidium PCR Stl E.coli Shiga Tox PCR Stl Enterotoxigenic E PCR Stool EAEC (PCR) Stl E. histolytica PCR Stool Giardia Lamblia PCR Stool Salmonella PCR Stool Sapovirus (PCR) Stl P. shigelloides PCR Stl Shigella/EIEC PCR St Y.enterocolitica PCR Stool Vibrio (PCR) Stl Vibrio cholerae PCR Stl Norovirus GI/GII PCR SARS-CoV-2 (PCR) (Negative) Influenza Type A (PCR) (Neg) Influenza Type B (PCR) (Neg) RSV (RT-PCR) (Neg) 06/11/23 Range/Units 09:02 WBC (4.8-10.8) K/ul RBC (4.70-6.10) M/uL Hgb (14.0-18.0) g/dl Hct (42.0-52.0) % MCV (80.0-100.0) fL MCH (25.0-34.0) pg MCHC (32.0-36.0) g/dL RDW Std Deviation (36.4-46.3) fL RDW Coeff of Rayna (11.5-14.5) % Plt Count (130-400) K/uL MPV (9.4-12.4) fL Immature Gran % (Auto) % Neut % (Auto) % Lymph % (Auto) % [place] % (Auto) % Eos % (Auto) % Baso % (Auto) % Neut # (Auto) (1.40-6.50) K/uL Lymph # (Auto) (1.20-3.40) K/uL [place] # (Auto) (0.11-0.59) K/uL Eos # (Auto) (0.00-0.50) K/uL Baso # (Auto) (0.00-0.20) K/uL Immature Gran # (Auto) (0.01-0.20) K/uL ESR (0-15) mm/hr Sodium (136-145) mmol/L Potassium (3.5-5.1) mmol/L Chloride (98-107) mmol/L Carbon Dioxide (21-32) mmol/L Anion Gap (3-11) BUN (6-23) mg/dl Creatinine (0.6-1.4) mg/dl Est Cr Clr Drug Dosing ml/min Est GFR ( Amer) ml/min Est GFR (Non-Af Amer) ml/min BUN/Creatinine Ratio (10-20) Glucose (70-99(Fasting)) mg/dl POC Glucose (70-99) mg/dl Lactate (0.4-2.0) mmol/L Calcium (8.6-10.3) mg/dl Magnesium (1.7-2.4) mg/dl Total Bilirubin (0.2-1.0) mg/dl AST (13-39) U/L ALT (7-52) U/L Alkaline Phosphatase (34-104) U/L Troponin I High Sens (0-20) pg/ml C-Reactive Protein 0.61 H (0-0.5) mg/dl Total Protein (6.0-8.3) gm/dl Albumin (3.4-5.0) gm/dl Globulin (2.5-4.0) gm/dl Albumin/Globulin Ratio (0.9-2) Procalcitonin (0-0.5) ng/ml Stl C. cayetanensis PCR Stool Rotavirus A PCR Stl Adenov F 40/41 PCR Stool Astrovirus (PCR) Stool Campylobacter PCR Stool Cryptosporidium PCR Stl E.coli Shiga Tox PCR Stl Enterotoxigenic E PCR Stool EAEC (PCR) Stl E. histolytica PCR Stool Giardia Lamblia PCR Stool Salmonella PCR Stool Sapovirus (PCR) Stl P. shigelloides PCR Stl Shigella/EIEC PCR St Y.enterocolitica PCR Stool Vibrio (PCR) Stl Vibrio cholerae PCR Stl Norovirus GI/GII PCR SARS-CoV-2 (PCR) (Negative) Influenza Type A (PCR) (Neg) Influenza Type B (PCR) (Neg) RSV (RT-PCR) (Neg) Diagnostic Findings Abdomen/Pelvis CT 06/11/23 08:54 CT abd pelvis oral and IV con CLINICAL HISTORY: rlq pain TECHNIQUE: Helical axial images of the abdomen and pelvis were obtained and displayed. Automated dose lowering techniques and/or adjustment according to patient size were utilized for this exam. This exam was performed with intravenous contrast. CT DOSE: 1366.67 mGy.cm COMPARISON: Comparison is made to CT abdomen pelvis 06/10/2023 FINDINGS: Lower chest: No acute abnormality. Liver: Unremarkable. No focal lesions are seen. Gallbladder and biliary tree: No calcified gallstones. Normal caliber wall. No intra- or extrahepatic biliary ductal dilation. Pancreas: Unremarkable, no focal lesions. Spleen: Unremarkable. Adrenals: Unremarkable. Kidneys and ureters: Left renal cyst is seen. Bladder: Unremarkable. Reproductive organs: Unremarkable. Bowel: Diverticulosis is seen without diverticulitis. The appendix is normal. Lymph nodes Retroperitoneal: Unremarkable. Pelvic: Unremarkable. Mesenteric: Unremarkable. Peritoneum: Normal. Vessels: Atherosclerotic calcifications are seen. Abdominal wall: Left fat containing inguinal hernia. Postsurgical changes of umbilical hernia repair are suggested. Bones: Mild degenerative changes are seen. IMPRESSION: 1. No acute abnormalities and in particular no evidence of appendicitis. 2. Diverticulosis without diverticulitis. ACT 112: Negative or not required by law. Electronically signed by: Deangelo Barth M.D. 06/11/2023 11:28 AM Scrotum Ultrasound 06/11/23 08:54 TESTICULAR ULTRASOUND HISTORY: r test pain, torsion COMPARISON: None. FINDINGS: Right testis: 20 x 13 x 9 mm. There are no intratesticular masses. Normal color flow. No hydrocele. The epididymis is unremarkable. Left testis: 22 x 16 x 8 mm. There is a 4 mm epididymal head cyst. There are no intratesticular masses. Normal color flow. No hydrocele. IMPRESSION: 1. No evidence for testicular torsion. 2. A 4 mm left epididymal head cyst. 3. Atrophic bilateral testes. ACT 112: Negative or not required by law. Electronically signed by: Karan Eli M.D. 06/11/2023 10:35 AM Chest X-Ray 06/11/23 13:12 XR chest 1V portable CLINICAL HISTORY: shortness of breath TECHNIQUE: Single frontal radiograph of the chest was obtained. Comparison: Comparison is made to chest radiograph 02/09/2021 FINDINGS: No lines and tubes are seen. The cardiomediastinal silhouette is normal. The lungs are clear. No evidence of pleural effusion or pneumothorax. IMPRESSION: No acute chest disease. ACT 112: Negative or not required by law. Electronically signed by: Deangelo Barth M.D. 06/11/2023 1:24 PM PG Care Time/CCT Total # of Minutes Spent Total Time Spent with Patient: Total time spent is greater than 50% in coordination of care (as documented) at patient's floor/unit and/or counseling patient: Coding Level of Care Code 47882 SUB INP/OBS CARE 3/50MIN Diagnoses Abdominal pain R10.84 Abdominal location: generalized Genitofemoral neuralgia of right side G58.8 Testicular pain N50.819 Ulcerative colitis K51.90 Bradycardia R00.1 Mild obstructive sleep apnea G47.33 Current smoker F17.200 Depression with anxiety F41.8 Family history of colon cancer in father Z80.0 (1) Abdominal pain Abdominal location: generalized Qualified Code(s): R10.84 - Generalized abdominal pain
[2023-06-12] MEDS ORDERED: TRIAMCINOLONE ACET 40 MG/ML VIAL ONE (08:23)
[2023-06-12] MEDS: HYDROmorphone INJ 1 MG/ML SYRINGE IV PRN (08:32)
--- NOTE | 2023-06-12 09:03 | History & Physical Bridge Note ---
Date of Service June 12, 2023 History & Physical Bridge Note I have examined the patient, reviewed the History & Physical and in the interval since the performance of the History & Physical I have noted the following changes of clinical significance: no changes noted. patient still with complaints of RLQ pain. rated 8/10. He finished his prep last evening and tells me that stools have been coming out clear. denies nausea, vomiting, heartburn, dysphagia, sob, chest pain. Will plan for Colonoscopy for today. Supervising Physician Co-Signing Physician Notes Agree with MADYSON Glover as above Abd: Soft, NT, ND, +BS Continue current therapy and supportive care Proceed with colonoscopy now
--- NOTE | 2023-06-12 09:21 | Pain Management Consultation ---
Date of Consultation June 12, 2023 Assessment & Plan (1) Genitofemoral neuralgia of right side: Plan There is fairly vague pain in the right lower abdomen, right groin and right testicle. He states that the worst is in the right groin area so I did offer to perform a right genitofemoral nerve block for diagnostic/therapeutic purposes. Risks and benefits were reviewed with the patient and his and they are understanding. He would like to proceed with the procedure. Please refer to procedure note for further details. GENITOFEMORAL NERVE BLOCK Diagnosis: Genitofemoral neuralgia Side/Level injected: Right Prior to starting, the diagnosis and procedure was reviewed with the patient in detail. Possible risks and complications including infection, bleeding, damage to surrounding structures and increased pain were discussed. Alternative therapies were also reviewed. All questions were answered and they agreed to proceed. Informed consent was obtained. Allergies and medication list was reviewed. The patient was brought to the procedure room and placed in supine position. Immediately prior to starting the procedure, a time out was conducted with the staff and the patient where the patient was identified, proposed procedure was verified, consent was reviewed and the proper site for the planned procedure was identified. Patient was not given any intravenous sedation and constant verbal contact was maintained throughout the procedure. On examination, no signs of skin breakdown or infection were noted at the injection site. The site was cleansed with ChloraPrep. Sterile drapes were applied. Using skeletal landmarks and a 22 gauge 1 1/2 inch needle, the ilioinguinal nerve was infiltrated with the entire contents of 5 cc of 0.5% Ropivacaine-MPF mixed with 40mg Kenalog and fanlike fashion. Aspiration of the needle prior to injection did not demonstrate any blood. Needle was flushed and withdrawn. Adequate hemostasis was noted. A sterile Band Aid was applied at the injection site. History of Present Illness Reason for Consultation: RLQ abdominal pain/ testicular pain Attending Physician: Aj Gonzalez History of Present Illness Mr. Ferreira is a 48-year-old male that is presenting with right lower abdominal pain, right testicular pain that has been ongoing for 3 days without any specific injury. He describes a constant aching and a sharp spasming, throbbing pain that occurs every 3 hours. He does have a history of an ilioinguinal hernia in this area several years ago. Patient has been evaluated by general surgery as well as urology which was unremarkable. There is diverticulosis but not active diverticulitis. He has been empirically treated for epididymitis with no white count and negative urinalysis. CT abdomen is negative. Patient states that whenever the pain is severe he does feel some relief with flexing his hips towards his chest. Denies any urinary symptoms. He does have a history of ulcerative colitis and scheduled for a colonoscopy today. He denies any diarrhea, constipation, hematochezia. Case discussed with Dr. Farheen Silva Allergies Allergy/AdvReac Type Severity Reaction Status Date / Time amoxicillin Allergy Severe ANAPHYLAXIS Verified 06/11/23 12:37 penicillin G Allergy Severe ANAPHYLAXIS Verified 06/11/23 12:37 pseudoephedrine Allergy Severe Anaphylaxis Verified 06/11/23 12:53 Sulfa (Sulfonamide Allergy Severe Anaphylaxis Verified 06/11/23 12:53 Antibiotics) latex Allergy Mild Rash Verified 06/11/23 12:37 Home Medications Medication Instructions Recorded Confirmed Type epinephrine 0.3 mg/0.3 mL 0.3 mg (0.3 mL) IM Q15M PRN 02/26/19 06/11/23 Rx injection, auto-injector (EpiPen) anaphylaxis 3 doses #2 ea acetaminophen 300 mg-codeine 30 mg 1 tab PO Q8H PRN pain #9 tabs 06/10/23 06/11/23 Rx tablet multivitamin 1 tab PO QAM 06/11/23 06/11/23 History Patient History Medical History (Updated 06/12/23 @ 11:28 by Miquel Berrios MD) Claw toe (acquired) Encounter for pre-operative examination Obesity (BMI 30-39.9) Osteoarthritis Overactive bladder Sleep apnea CPAP Surgical History History of right inguinal hernia repair History of umbilical hernia repair Family History Family/Other Cancer Heart disease Hypertension Social History Smoking Status: Current every day smoker Tobacco Type: Cigarettes Cigarettes Per Day: half a pack; Second Hand Exposure: No; Do You Dip or Chew Tobacco: No; Hx Alcohol Use: Yes Alcohol type: beer, wine and hard liquor Hx Substance Use: No Preferred Language: Bengali Communication Ability: Effective 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 Accompanied by his . HEAD/FACE: Normocephalic and atraumatic. EYES: No drainage or conjunctival injection. ENT: Nose without bleeding or discharge. Oral mucosa moist. NECK: Full ROM without apparent pain. No swelling or masses noted. RESPIRATORY: Patient with unlabored breathing. No signs of respiratory distress. CHEST/AXILLA: Chest movement symmetrical. No deformities noted. ABDOMEN/GI: No distension. There is mild tenderness along the entire right upper abdomen. Mild guarding. No peritoneal signs. He does have exquisite tenderness along the right genitofemoral nerve. No ilioinguinal tenderness. Testicular exam deferred. BACK: Moves without difficulty SKIN: [place], warm and dry. No rash noted. MS/EXTREMITY: No swelling, no deformities. Moving extremities appropriately. NEURO: Alert and appears oriented. Speech is fluent. Cranial Nerves are grossly intact. PSYCH: Alert, pleasant, affect is calm Results (Pain Clinic) Diagnostic Review CT Findings: CT Abdomen and Pelvis With Intravenous Contrast CLINICAL HISTORY: Reason for exam: diffuse ab pain; most prominent R ab/groin. TECHNIQUE: Axial computed tomography images of the abdomen and pelvis with intravenous contrast. Automated exposure control was utilized for the study. A dose lowering technique was utilized adhering to the principles of ALARA. CONTRAST: Patient received 88 ml optiray 320 of IV contrast COMPARISON: No relevant prior studies available. FINDINGS: ABDOMEN: Liver: Unremarkable. Gallbladder and bile ducts: Unremarkable. Pancreas: Unremarkable. Spleen: Unremarkable. Adrenals: Unremarkable. Kidneys and ureters: Unremarkable. No obstructing stones. No hydronephrosis. Stomach and bowel: Unremarkable. PELVIS: Appendix: No findings to suggest acute appendicitis. Bladder: Unremarkable. Reproductive: Unremarkable as visualized. ABDOMEN and PELVIS: Intraperitoneal space: Unremarkable. No free air. No significant fluid collection. Bones/joints: No acute fracture. Soft tissues: Unremarkable. Vasculature: Unremarkable. Lymph nodes: Unremarkable. IMPRESSION: 1. No acute process within the abdomen or pelvis. Electronically signed by: Paul Mahan MD 06/10/23 23:[address] abd pelvis oral and IV con CLINICAL HISTORY: rlq pain TECHNIQUE: Helical axial images of the abdomen and pelvis were obtained and displayed. Automated dose lowering techniques and/or adjustment according to patient size were utilized for this exam. This exam was performed with intravenous contrast. CT DOSE: 1366.67 mGy.cm COMPARISON: Comparison is made to CT abdomen pelvis 06/10/2023 FINDINGS: Lower chest: No acute abnormality. Liver: Unremarkable. No focal lesions are seen. Gallbladder and biliary tree: No calcified gallstones. Normal caliber wall. No intra- or extrahepatic biliary ductal dilation. Pancreas: Unremarkable, no focal lesions. Spleen: Unremarkable. Adrenals: Unremarkable. Kidneys and ureters: Left renal cyst is seen. Bladder: Unremarkable. Reproductive organs: Unremarkable. Bowel: Diverticulosis is seen without diverticulitis. The appendix is normal. Lymph nodes Retroperitoneal: Unremarkable. Pelvic: Unremarkable. Mesenteric: Unremarkable. Peritoneum: Normal. Vessels: Atherosclerotic calcifications are seen. Abdominal wall: Left fat containing inguinal hernia. Postsurgical changes of umbilical hernia repair are suggested. Bones: Mild degenerative changes are seen. IMPRESSION: 1. No acute abnormalities and in particular no evidence of appendicitis. 2. Diverticulosis without diverticulitis. ACT 112: Negative or not required by law. Electronically signed by: Deangelo Barth M.D. 06/11/2023 11:28 AM Other Findings: TESTICULAR ULTRASOUND HISTORY: r test pain, torsion COMPARISON: None. FINDINGS: Right testis: 20 x 13 x 9 mm. There are no intratesticular masses. Normal color flow. No hydrocele. The epididymis is unremarkable. Left testis: 22 x 16 x 8 mm. There is a 4 mm epididymal head cyst. There are no intratesticular masses. Normal color flow. No hydrocele. IMPRESSION: 1. No evidence for testicular torsion. 2. A 4 mm left epididymal head cyst. 3. Atrophic bilateral testes. ACT 112: Negative or not required by law. Electronically signed by: Karan Eli M.D. 06/11/2023 10:35 AM
[2023-06-12 10:40] LABS: Adenovirus F 40/41 PCR Not Detected (NotDetected); Astrovirus PCR Not Detected (NotDetected); Campylobacter PCR Not Detected (NotDetected); Cryptosporidium PCR Not Detected (NotDetected); Cyclospora cayetanensis PCR Not Detected (NotDetected); Entamoeba histolytica PCR Not Detected (NotDetected); Enteroaggregative E.coli(EAEC) Not Detected (NotDetected); Enteropathogenic E.coli (EPEC) Not Detected (NotDetected); Enterotoxigenic E.coli (ETEC) Not Detected (NotDetected); Giardia lamblia PCR Not Detected (NotDetected); Norovirus GI/GII PCR Not Detected (NotDetected); Plesiomonas shigelloides PCR Not Detected (NotDetected); Rotavirus A PCR Not Detected (NotDetected); Salmonella PCR Not Detected (NotDetected); Sapovirus PCR Not Detected (NotDetected); Shiga-like Toxin E.coli (STEC) Not Detected (NotDetected); Shigella/Enteroinvasive E.coli Not Detected (NotDetected); Vibrio cholerae PCR Not Detected (NotDetected); Vibrio species PCR Not Detected (NotDetected); Yersinia enterocolitica PCR Not Detected (NotDetected)
--- NOTE | 2023-06-12 11:25 | Anesthesiology Consultation ---
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 Radames Crum, DO Height/Weight Height: 5 ft 4 in Weight: 104.9 kg Allergies Allergy/AdvReac Type Severity Reaction Status Date / Time amoxicillin Allergy Severe ANAPHYLAXIS Verified 06/11/23 12:37 penicillin G Allergy Severe ANAPHYLAXIS Verified 06/11/23 12:37 pseudoephedrine Allergy Severe Anaphylaxis Verified 06/11/23 12:53 Sulfa (Sulfonamide Allergy Severe Anaphylaxis Verified 06/11/23 12:53 Antibiotics) latex Allergy Mild Rash Verified 06/11/23 12:37 Medications Home Medications Medication Instructions Recorded Confirmed Last Taken epinephrine 0.3 mg/0.3 mL 0.3 mg (0.3 mL) IM Q15M PRN 02/26/19 06/11/23 Unknown injection, auto-injector (EpiPen) anaphylaxis 3 doses #2 ea acetaminophen 300 mg-codeine 30 mg 1 tab PO Q8H PRN pain #9 tabs 06/10/23 06/11/23 06/10/23 tablet multivitamin 1 tab PO QAM 06/11/23 06/11/23 06/10/23 Active Medications Generic Name Dose Route Start Last Admin Trade Name Freq PRN Reason Stop Dose Admin Hydromorphone HCl 1 mg 06/11/23 16:05 06/12/23 08:32 Hydromorphone Inj 1 Mg/Ml Syringe IV 06/25/23 16:04 1 mg Q4H PRN Administration Severe Pain (Scale 8, 9,10) Lactated Ringer's 1,000 mls @ 80 mls/hr 06/11/23 16:05 06/12/23 02:15 Lr IV 07/11/23 16:04 80 mls/hr .[id number] MACIEL Administration Ciprofloxacin 400 mg in 200 mls @ 100 mls/hr 06/12/23 02:00 06/12/23 04:34 Cipro / D5w IV 06/22/23 01:59 Infused Q12H MACIEL Infusion Protocol Metronidazole 500 mg in 100 mls @ 100 mls/hr 06/11/23 22:00 06/12/23 07:03 Flagyl IV 06/21/23 16:44 Infused Q8H MACIEL Infusion Protocol Past Medical History Medical History (Updated 06/12/23 @ 11:28 by Miquel Berrios MD) Claw toe (acquired) Encounter for pre-operative examination Obesity (BMI 30-39.9) Osteoarthritis Overactive bladder Sleep apnea CPAP Past Family History Family History Family/Other Cancer Heart disease Hypertension Past Surgical History Surgical History History of right inguinal hernia repair History of umbilical hernia repair Social History Smoking Status: Current every day smoker tobacco type: cigarettes Smoking cigarettes per day: half a pack Do You Dip or Chew Tobacco: No Hx Alcohol Use: Yes Alcohol type: beer, wine and hard liquor alcohol intake frequency: a few times a week Hx Substance Use: No substance use type: does not use Physical Exam Vital Signs Last Vital Signs Temp 36.9 C 06/12/23 11:10 Pulse 49 L 06/12/23 11:10 Resp 18 06/12/23 11:10 BP 100/63 06/12/23 11:10 Pulse Ox 94 06/12/23 11:10 O2 Del Method Room Air 06/12/23 11:10 Testing Laboratory Results 06/12/23 05:59 06/12/23 05:59 Urine Color Yellow 06/11/23 09:02 Urine Appearance Clear (Clear) 06/11/23 09:02 Urine pH 6.0 (4.5-7.5) 06/11/23 09:02 Ur Specific [place] 1.033 (1.000-1.030) H 06/11/23 09:02 Urine Protein Negative (Negative) 06/11/23 09:02 Urine Glucose (UA) Negative (Negative) 06/11/23 09:02 Urine Ketones Negative (Negative) 06/11/23 09:02 Urine Nitrite Negative (Negative) 06/11/23 09:02 Ur Leukocyte Esterase Negative (Negative) 06/11/23 09:02 06/12/23 08:02 POC Glucose 97 Electrocardiogram Date: 06/11/2311-Jun-2023 13:23:59 [facility]-EDSTAT ROUTINE RETRIEVAL Marked sinus bradycardia Abnormal ECG When compared with ECG of 09-FEB-2021 19:16, Vent. rate has decreased BY 21 BPM 25mm/s10mm/[id number] 243CID: [id number] by: REFERRED SELF Unconfirmed Vent. rate 44 BPM IL interval 148 ms QRS duration 92 ms QT/QTc 466/398 ms. Chest X-Ray Date: 06/11/23 XR chest 1V portable CLINICAL HISTORY: shortness of breath TECHNIQUE: Single frontal radiograph of the chest was obtained. Comparison: Comparison is made to chest radiograph 02/09/2021 FINDINGS: No lines and tubes are seen. The cardiomediastinal silhouette is normal. The lungs are clear. No evidence of pleural effusion or pneumothorax. IMPRESSION: No acute chest disease.
--- NOTE | 2023-06-12 11:38 | Urology Progress Note ---
Date of Service June 12, 2023 Assessment & Plan (1) Pain in right testicle: Plan: Follow-up of right testicular pain Afebrile, stable vitals No acute findings on scrotal US Voiding without difficulty He underwent nerve block with pain management this morning No immediate improvement yet, but will hopefully begin to help his symptoms Continue supportive care with scrotal support when ambulating, scrotal elevation when sitting/laying flat, ice or heat packs and usage of Tylenol and/or NSAIDs as needed No acute intervention Will arrange outpatient follow-up with our service will sign off (2) Genitofemoral neuralgia of right side: Admission and Anticipated Discharge Date Admission Date: June 11, 2023 Subjective Patient seen and examined at bedside Awake and resting in bed, family member at bedside Received right genitofemoral nerve block this morning with pain management No significant improvement noted yet Reports pain comes and goes Voiding without difficulty, denies dysuria or hematuria Denies nausea, vomiting, fever or chills Colonoscopy scheduled this afternoon Review of Systems Constitutional: as per Subjective / HPI Gastrointestinal: as per Subjective / HPI Genitourinary: + as per Subjective / HPI Physical Exam Physical Exam: General: well-appearing, no acute distress HEENT: Normocephalic Pulmonary: Nonlabored respirations Abdomen: Nondistended Extremities: Moves all 4 spontaneously Neuro: No gross deficits Psych: alert and oriented, normal mood Skin: Warm, dry, no rashes noted Results & Data Vital Signs (Past 12 Hours) Vital Signs Temp Pulse Pulse Resp BP Pulse Ox O2 Del Method 06/12/23 11:10 36.9 C 49 L 18 100/63 94 Room Air 06/12/23 08:29 113/72 06/12/23 07:44 36.8 C 90 18 96/62 L 95 Room Air 06/12/23 07:26 48 L 06/12/23 03:13 36.6 C 44 L 18 93/54 L 93 Room Air 06/11/23 23:45 57 L PG Care Time/CCT Total # of Minutes Spent Total Time Spent with Patient: Total time spent is greater than 50% in coordination of care (as documented) at patient's floor/unit and/or counseling patient: Coding Level of Care Code 66996 SUB INP/OBS CARE 10/11MIN Diagnoses Pain in right testicle N50.811 Genitofemoral neuralgia of right side G58.8
[2023-06-12] MEDS ORDERED: ALBUT/IPRATROP 3MG/0.5MG NEB 3 ML VIAL INH STA (12:41)
[2023-06-12] MEDS ORDERED: PROPOFOL IV EMULSION 10 MG/ML 20 ML VIAL IV ONE (13:26)
--- NOTE | 2023-06-12 13:39 | GI REPORT ---
Patient Name: César Ferreira Procedure Date: 06/12/2023 12:42 PM Date of : 1975 Admit Type: Inpatient Age: 48 Gender: Male Attending MD: Nima Crum DO, Procedure: Colonoscopy Providers: Nima Crum DO Referring MD: Aj Gonzalez M.d. Indications: Abdominal pain in the right lower quadrant Medicines: Monitored Anesthesia Care Complications: No immediate complications. Estimated Blood Loss: Estimated blood loss: none. Procedure: Pre-Anesthesia Assessment: - Prior to the procedure, a History and Physical was performed, and patient medications and allergies were reviewed. The patient's tolerance of previous anesthesia was also reviewed. The risks and benefits of the procedure and the sedation options and risks were discussed with the patient. All questions were answered, and informed consent was obtained. Prior Anticoagulants: The patient has taken no anticoagulant or antiplatelet agents. ASA Grade Assessment: II - A patient with mild systemic disease. After reviewing the risks and benefits, the patient was deemed in satisfactory condition to undergo the procedure. After I obtained informed consent, the scope was passed under direct vision. Throughout the procedure, the patient's blood pressure, pulse, and oxygen saturations were monitored continuously. The Colonoscope was introduced through the anus and advanced to the terminal ileum. The colonoscopy was performed without difficulty. The patient tolerated the procedure well. The quality of the bowel preparation was good. The terminal ileum, ileocecal valve, appendiceal orifice, and rectum were photographed. Findings: The perianal and digital rectal examinations were normal. A 4 mm polyp was found in the rectum. The polyp was sessile. The polyp was removed with a cold snare. Resection and retrieval were complete. Non-bleeding internal hemorrhoids were found during retroflexion. The hemorrhoids were small. Several random biopsies were obtained with cold forceps for histology in the entire colon. Impression: - One 4 mm polyp in the rectum, removed with a cold snare. Resected and retrieved. - Non-bleeding internal hemorrhoids. - Several random biopsies were obtained in the entire colon. Recommendation: - Resume previous diet. - Continue present medications. - Repeat colonoscopy for surveillance based on pathology results. - Return to primary care physician as previously scheduled. Nima Crum DO 06/12/2023 1:39:10 PM This report has been signed electronically. Note Initiated On: 06/12/2023 12:42 PM Number of Addenda: 0 I attest to the content of the Intraoperative Record and orders documented therein, exceptions below {[id number]}
--- NOTE | 2023-06-12 14:38 | Anesthesiology Progress Note ---
Date of Service June 12, 2023 Anesthesia Post Procedure Vital Signs Vital Signs: Temp Pulse Pulse Pulse Resp BP BP 06/12/23 13:59 46 L 18 113/68 06/12/23 13:44 52 L 18 128/77 06/12/23 13:29 47 L 18 108/66 06/12/23 12:59 54 L 20 06/12/23 12:24 36.7 C 49 L 16 119/75 06/12/23 11:10 36.9 C 49 L 18 06/12/23 08:29 06/12/23 07:44 36.8 C 90 18 06/12/23 07:26 48 L 06/12/23 03:13 36.6 C 44 L 18 06/11/23 23:45 57 L 06/11/23 22:53 36.5 C 46 L 18 06/11/23 19:20 36.6 C 48 L 18 06/11/23 17:27 37 C 50 L 20 06/11/23 17:00 44 L 16 118/69 06/11/23 16:00 46 L 12 110/75 06/11/23 15:11 45 L 16 106/72 BP Pulse Ox O2 Del Method 06/12/23 13:59 97 Room Air 06/12/23 13:44 94 Room Air 06/12/23 13:29 96 Room Air 06/12/23 12:59 96 Room Air 06/12/23 12:24 95 Room Air 06/12/23 11:10 100/63 94 Room Air 06/12/23 08:29 113/72 06/12/23 07:44 96/62 L 95 Room Air 06/12/23 07:26 06/12/23 03:13 93/54 L 93 Room Air 06/11/23 23:45 06/11/23 22:53 94/63 L 93 Room Air 06/11/23 19:20 109/70 94 Room Air 06/11/23 17:27 114/70 96 Room Air 06/11/23 17:00 95 Room Air 06/11/23 16:00 95 06/11/23 15:11 95 Room Air Pain Intensity Abdomen: Pain Intensity: 3 Transfer of Care Handoff Completed per policy Notes Mental Status: alert / awake / arousable and participated in evaluation Patient Amnestic to Procedure: Yes Nausea / Vomiting: adequately controlled Pain: adequately controlled Airway Patency, RR, SpO2: stable & adequate BP & HR: stable & adequate Hydration State: stable & adequate Anesthetic Complications: no major complications apparent
[2023-06-13] MEDS: CIPROFLOXACIN / D5W 400 MG/200 ML BAG IV SCH (02:49)
[2023-06-13] MEDS: LACTATED RINGER'S 1,000 ML IV SCH (05:19)
[2023-06-13] MEDS: metroNIDAZOLE 500 MG/100 ML BAG IV SCH (05:19)
--- NOTE | 2023-06-13 13:17 | Discharge Summary ---
Date of Service June 13, 2023 Admission HPI Per Admitting Provider 48yo male with PMHx significant for tobacco use, overactive bladder, sleep apnea, supposedly ulcerative colitis (not on treatment) ,depression/anxiety presented to the ER with worsening right sided abdominal pain. Occassionally takes ibuprofen and multivitamin at home. Patient evaluated in A12B with and family at beside, appears uncomfortable. Having ongoing RLQ/R sided, associated nausea but not vomiting at present. Abdomen is distended. Per patient/family, has had some rectal bleeding when diagnosed with ulcerative colitis, not on any medications. Denies any bleeding in his stool that they have noticed, he reports moving his bowels yesterday. Father with history of colon cancer in his 70s. Patient's does report he had c-scope in the past, around ~2011, with Dr Crum. Appears uncomfortable at present with movements. Per family, had been having chills this morning and on Sunday he had been so chilled he took a tub soak to cool off but no known fevers. SpO2 in the 80s but denies shortness of breath.Just given medication earlier, On CPAP at home, does not have with her. Will order now. Denies chest pain or shortness of breath, no difficulty laying flat at present. No LE edema/calf tenderness. Of note, patient [place], left [facility]. If he becomes distress/agitated should call to calm down as has done in the past. He is presently alert/oriented to person/place/time and events. notes morphine makes him angry, has allergy to sulfa/PCN/pseudoephedrine. ER Course: WBC 6.94k, Hgb 13.8, Plt 216. Na 139. K 4.1. BUN/Cr 20/0.77. UA w/ spec gravity 1.033 CTAP w/o acute finding. Scrotal US noting 4 mm left epididymal head cyst (chronic testicular issues) Given 500cc NSS bolus, Toradol 15mg IV, Dilaudid 1mg, Zofran 4mg IV Checking procal, ESR, CRP, lactic, blood cultures (discussed with nursing to obtain prior to antibiotics with Cipro/Flagyl as ordered in ER). Additional 1L LR bolus to be provided. Bradycardic on telemetry but with p-waves. No heart block observed but checking EKG/trop as well. Consultation to be undertaken by GI as well. Principal Diagnosis abd. pain Discharge Exam General: WD obese male laying flat in bed, NAD HEENT: head atraumatic, normocephali Resp: diminished in the bases but no obvious w/c/r, on room air at present CV: regular rhythm GI: +BS, +distension MSK/Neuro: follows commands, no focal deficit, no slurred speech no evidence for inguinal hernia. no scrotal erythema/rash, no obvious lesion (4mm epididymal head cyst reported on US) Psych: AOx3, reporting wanting something to eat Skin: no obvious skin lesions Discharge Data Allergies Allergy/AdvReac Type Severity Reaction Status Date / Time amoxicillin Allergy Severe ANAPHYLAXIS Verified 06/11/23 12:37 penicillin G Allergy Severe ANAPHYLAXIS Verified 06/11/23 12:37 pseudoephedrine Allergy Severe Anaphylaxis Verified 06/11/23 12:53 Sulfa (Sulfonamide Allergy Severe Anaphylaxis Verified 06/11/23 12:53 Antibiotics) latex Allergy Mild Rash Verified 06/11/23 12:37 Consultations 06/11/23 12:33 ED Decision to Admit Stat 06/11/23 13:06 Consult Gastroenterology Routine 06/11/23 14:14 Consult Urology Routine 06/12/23 07:57 Consult Pain Management Routine Procedures Performed Operation Date: 06/12/23 16:30 Actual Procedures p Colonoscopy Biopsy Cytology - Nima Hernandez Case, DO s Colonoscopy Polypectomy - Nima Toribio. Case, DO Ordered Studies 06/11/23 08:54 CT Abd and Pelvis [CT abd pelvis oral and IV con] Stat US Testicles [US scrotum/testicle] Stat Hospital Course (1) Abdominal pain: Admitting for uncontrolled abdominal pain, nausea, inability to keep down oral intake. WBC, afebrile. LFTs wnl, Lipase 44 Prior hx of ulcerative colitis/c-scope with Dr Crum in early , not on treatment. Denies blood in stools at present. Noting his father with hx colon ca in his 70s. Viral testing negative CTAP negative for diverticulitis. C-scope was also negative. Pain improved 4 hours after genitofemoral nerve block. Patient will followup with Pain management. Antibiotics discontinued Patient tolerating diet, will discharge. (2) Genitofemoral neuralgia of right side: suspected possible cause for testicular pain/referred pain. urology consulted for testicular pain (noting nothing from their end) s/p nerve block as above w/ pain management this morning (3) Testicular pain: Scrotal US w/ noted 4mm L epididymal cyst -- chronic issue noting pain from this location, ?referred urology/pain management consulted as above WIll followup with Urology as discharge. (4) Ulcerative colitis: hx of such, abd pain as above, concerning for inflammatory bowel disease. checking inflammatory markers as above, not significantly elevated check fecal occult for completeness although denies any bleeding GI consulted, appreciate assistance/recs. bowel prep last night/NPO this morning for c-scope with Dr Crum for further eval (5) Bradycardia: Bradycardic in ER with HRs to 40s. Not on any BB. Pwaves on monitor Trop/EKG to check for heart block/other cause for abdominal pain, CXR obtained, no acute process EKG w/ sinus harjit, no block monitor on telemetry to see if any pauses/heart block contributing -- nothing to note at present (6) Mild obstructive sleep apnea: CPAP ordered -- brought in home unit, has been using (7) Current smoker: smoking cessation encouraged nicotine patch if needed (8) Depression with anxiety: not on any medications at present (9) Family history of colon cancer in father: father w/ hx colon ca in his 70s. Last c-scope at least 10 years, and given hx ulcerative colitis (vs ulcerative proctitis?) Total Time Total Time Spent Total Time Spent (In Minutes): 32 Discharge Plan Discharge Items Patient Disposition: Home - Self-Care Reason For Visit: ABDOMINAL PAIN, ULCERATIVE COLITIS VS DIVERTICULIT Discharge Diagnosis: abdominal pain Condition on Discharge: Fair Activity: Resume your previous activity Non-emergency contact: Primary Care Provider Call non-emergency contact if: you have any medication questions Follow-up/Referrals: Nima Crum DO [Physician] - (Dr. Crum's office will call you to schedule your follow up appointment) Celena Berger MD [Primary Care Provider] - 06/25/23 11:30 am (Dr. Berger) Diet: Low Fiber, Low Fat and Lactose Intolerant Diet Comment: low fat low fiber lactose free Addtl Attending Provider Instructions: Recommend followup with Dr. Crum in 6 weeks. Recommend followup with PCP in 1-2 weeks Pending Studies at Discharge: No Stand-Alone Forms: My [facility] [place] [employer], Smoking Cessation Medications and DC Order Prescriptions: Continued epinephrine [EpiPen] 0.3 mg/0.3 mL auto-injector 0.3 mg IM Q15M PRN (Reason: anaphylaxis) Qty: 2 1RF Rx Instructions: until response acetaminophen-codeine 300-30 mg tablet 1 tab PO Q8H PRN (Reason: pain) Qty: 9 0RF multivitamin Tablet 1 tab PO QAM Discharge Orders: Discharge Order (Routine); Ordered 06/13/23 Ordered By: Aj Gonzalez Admission Data Admit Date/Time: 06/11/23 13:44 Attending Provider: Aj Gonzalez Admit Provider: Henri Vigil Primary Care Provider: Celena Berger Other Providers: Nima Crum ; Shiva Urbina ; Farheen Silva Other Interventions: Discharge Summary Assessment (RN) Last Done: 06/13/23 12:50 Coding Level of Care Code 69541 INP/OBS DISCH >30 MIN Diagnoses Abdominal pain R10.84 Abdominal location: generalized Genitofemoral neuralgia of right side G58.8 Testicular pain N50.819 Ulcerative colitis K51.90 Bradycardia R00.1 Mild obstructive sleep apnea G47.33 Current smoker F17.200 Depression with anxiety F41.8 Family history of colon cancer in father Z80.0
--- NOTE | 2023-06-13 21:13 | Electrocardiogram Report ---
Test Reason : Blood Pressure : / mmHG Vent. Rate : 044 BPM Atrial Rate : 044 BPM P-R Int : 148 ms QRS Dur : 092 ms QT Int : 466 ms P-R-T Axes : 018 074 070 degrees QTc Int : 398 ms Marked sinus bradycardia Abnormal ECG When compared with ECG of 09-FEB-2021 19:16, Vent. rate has decreased BY 21 BPM Confirmed by Gavin Neumann ([id number]) on 06/13/2023 9:13:06 PM Referred By: REFERRED SELF Confirmed By:Gavin Neumann
== END 2023-06-13 13:38 | disposition home or self-care (01) ==
LOC: ED 08:30 → EDINP 08:30 → 2W 15:55 → SUATTDRO 16:22 → 2W 17:45